=== PATIENT | female | born 1940 | race Caucasian/White ===

== ENCOUNTER 2017-03-03 18:25 | Emergency (ER) | payer MEDICARE, BC ==
[2017-03-03 18:36] VITALS: BP 132/55
--- NOTE | 2017-03-03 18:46 | EDM.PDOC ---
ED HPI GENERAL MEDICAL PROBLEM - General Chief Complaint: General Stated Complaint: FALL ON FACE Time Seen by Provider: 03/03/17 18:33 Source of Information: Reports: Patient History Limitations: Reports: No Limitations - History of Present Illness INITIAL COMMENTS - FREE TEXT/NARRATIVE: This patient is a 77 year old female that presents to the ER. Patient reports that she just got a new cat and tripped with the cat at home and fell and hit the nose and front head on the cement. Patent reports that she is on coumadin. She reports she came into the ER because she has a small cut on her nose and it would not stop bleeding. Patient reports she has frontal headache, nose pain, neck pain, lower back pain. Patient denies having loc, vision changes, n, v, cp , soa, abd pain, urinary/bowel incontinence. Patient ambulatory. Patient bleeding on nose is controlled. Patient is fully alert and oriented. She is conversing in full and complete sentences without difficulty. Stable. 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 Denies: Confusion, Chest Pain, Cough, cough w sputum, Diaphoresis, Fever/Chills, Loss of Appetite, Malaise, Nausea/ Vomiting, Rash, Seizure, Shortness of Breath, Syncope, Weakness Face Pain Score (Numeric/FACES): 4 - Related Data Allergies Allergy/AdvReac Type Severity Reaction Status Date / Time Sulfa (Sulfonamide Allergy Rash Verified 03/03/17 18:37 Antibiotics) Home Meds: Home Meds Allopurinol [Zyloprim] 100 mg PO DAILY 04/18/16 [History] Ferrous Sulfate 324 mg PO DAILY 04/18/16 [History] Insulin Glarg,Human.Rec.Analog [LantUS Solostar] 18 units SQ PCBREAKFAST [History] Insulin Glarg,Human.Rec.Analog [Lantus Solostar] 14 units SQ BEDTIME 04/18/16 [ History] Levothyroxine Sodium [Levoxyl] 125 mcg PO DAILY 04/18/16 [History] Simvastatin [Zocor] 20 mg PO DAILY 04/18/16 [History] Amiodarone [Cordarone] 200 mg PO DAILY 09/02/16 [History] Aspirin [Halfprin] 81 mg PO DAILY 09/02/16 [History] Furosemide [Lasix] 40 mg PO BID 10/30/16 [History] Potassium Chloride [Klor-Con M20] 10 meq PO DAILY 10/30/16 [History] Cyclobenzaprine HCl 5 mg PO BID PRN 11/14/16 [History] Docusate Sodium [Colace] 100 mg PO BID PRN 11/14/16 [History] Ergocalciferol (Vitamin D2) [Vitamin D2] 4,000 unit PO DAILY 11/14/16 [History] Magnesium 500 mg PO DAILY 11/14/16 [History] Nitroglycerin [Nitrostat] 0.4 mg SL Q5M PRN 11/14/16 [History] Apixaban [Eliquis] 5 mg PO BID #60 tablet 11/19/16 [Rx] Past Medical History Cardiovascular History: Reports: Afib, Bypass, Heart Failure, High Cholesterol, Hypertension, Stents Other Cardiovascular History: previous PTCA stent in 2010. Had attempt to place a cardiac stent in July, unable to do so; Has a history of Afib, as well as postop now; pleual effusion on 08-28-16, stayed overnight; Since CAGP---dizzy, fatgue and weakness, appetite improving some, somewhat SOB, lost a few pounds after surgery Gastrointestinal History: Reports: GERD Other Gastrointestinal History: reflux per history; choleylithasis Endocrine/Metabolic History: Reports: Diabetes, Type II, Hypothyroidism Other Endocrine/Metabolic History: says her blood sugars are OK right now Oncologic (Cancer) History: Reports: Other (See Below) Other Oncologic History: skin ca on nose - Past Surgical History Cardiovascular Surgical History: Reports: Coronary Artery Stent Social & Family History - Family History Family Medical History: Noncontributory - Tobacco Use Smoking Status *Q: Never Smoker Second Hand Smoke Exposure: No - Caffeine Use Caffeine Use: Reports: Coffee - Recreational Drug Use Recreational Drug Use: No ED ROS GENERAL - Review of Systems Review Of Systems: See Below Constitutional: Reports: No Symptoms HEENT: Reports: No Symptoms Respiratory: Reports: No Symptoms Cardiovascular: Reports: No Symptoms Endocrine: Reports: No Symptoms GI/Abdominal: Reports: No Symptoms : Reports: No Symptoms Musculoskeletal: Reports: Neck Pain, Back Pain (lower, right more than left. ) Skin: Reports: No Symptoms Neurological: Reports: Headache Psychiatric: Reports: No Symptoms Hematologic/Lymphatic: Reports: No Symptoms Immunologic: Reports: No Symptoms ED EXAM, GENERAL - Physical Exam Exam: See Below Exam Limited By: No Limitations General Appearance: Alert, WD/WN, No Apparent Distress Eye Exam: Bilateral Eye: EOMI, Normal Inspection, PERRL Ears: Normal External Exam, Normal Canal, Hearing Grossly Normal, Normal TMs Ear Exam: Bilateral Ear: Auricle Normal, Canal Normal, TM normal Nose: Nasal Tenderness, Nasal Swelling, Other (superficial laceration center of nose with abrasion. bleeding controlled. ) Throat/Mouth: Normal Inspection, Normal Lips, Normal Teeth, Normal Gums, Normal Oropharynx, Normal Voice, No Airway Compromise Head: Normocephalic, Facial Swelling (nasal), Facial Tenderness (nasal) Neck: Normal Inspection, Supple, Non-Tender, Full Range of Motion Respiratory/Chest: No Respiratory Distress, Lungs Clear, Normal Breath Sounds, No Accessory Muscle Use, Chest Non-Tender Cardiovascular: Normal Peripheral Pulses, Regular Rate, Rhythm, No Edema, No Gallop, No JVD, No Murmur, No Rub Peripheral Pulses: 2+: Radial (L), Radial (R), Posterior Tibial (L), Posterior Tibial (R) GI/Abdominal: Normal Bowel Sounds, Soft, Non-Tender, No Organomegaly, No Distention, No Abnormal Bruit, No Mass, Pelvis Stable Back Exam: Normal Inspection, Full Range of Motion, Paraspinal Tenderness (right ). No: CVA Tenderness (L), CVA Tenderness (R), Decreased Range of Motion, Muscle Spasm, Vertebral Tenderness Extremities: Normal Inspection, Normal Range of Motion, Non-Tender, No Pedal Edema, Normal Capillary Refill Neurological: Alert, Oriented, CN II-XII Intact, Normal Cognition, Normal Gait, No Motor/Sensory Deficits Psychiatric: Normal Affect, Normal Mood Skin Exam: Warm, Dry, Normal Color, No Rash, Wound/Incision (abrasion nose, small laceration 0.25cm. ) ED GENERAL MEDICAL PROCEDURES - Laceration/Wound Repair Upper Nose Lac/wound length in cm: 0.5 Appearance: superficial Distal NVT: neuro & vascular intact, no tendon injury Skin prep: chlorhexidine (hibiciens) Exploration/Debridement/Repair: wound explored, in a bloodless field, explored to base, no foreign material found Closed with: dermabond Course - Vital Signs Last Recorded V/S: Last Vital Signs Temp 97.7 F 03/03/17 18:29 Pulse 60 03/03/17 18:29 Resp 16 03/03/17 18:29 BP 132/55 L 03/03/17 18:29 Pulse Ox 96 03/03/17 18:29 - Orders/Labs/Meds Orders: Active Orders 24 hr Category Date Time Status Cervical Spine wo Cont [CT] Stat Exams 03/03/17 18:40 Taken Head wo Cont [CT] Stat Exams 03/03/17 18:33 Taken Lumbar Spine 2 or 3V [CR] Stat Exams 03/03/17 18:33 Taken Max Facial Sinus wo Cont [CT] Stat Exams 03/03/17 18:33 Taken INR,PT,PROTHROMBIN TIME [COAG] Stat Lab 03/03/17 18:36 Ordered - Radiology Interpretation Free Text/Narrative:: CT head: discussed with radiologist: No acute findings. Cervical: NO acute findings. Facial: nasal fx nondisplaced. CT Results Date: 03/03/17 CT Results Time: 19:57 Departure - Departure Time of Disposition: 19:58 Disposition: Home, Self-Care 01 Condition: good Clinical Impression: Abrasion Laceration of nose Qualifiers: Encounter type: initial encounter Qualified Code(s): S01.21XA - Laceration without foreign body of nose, initial encounter Head injury Qualifiers: Encounter type: initial encounter Qualified Code(s): S09.90XA - Unspecified injury of head, initial encounter Lumbar strain Qualifiers: Encounter type: initial encounter Qualified Code(s): S39.012A - Strain of muscle, fascia and tendon of lower back, initial encounter Nasal bone fracture Qualifiers: Encounter type: initial encounter Fracture type: closed Qualified Code(s): S02.2XXA - Fracture of nasal bones, initial encounter for closed fracture - Discharge Information Instructions: Tissue Adhesive Wound Care, Nasal Fracture, Lumbosacral Strain Forms: ED Department Discharge Additional Instructions: Followup with your primary care provider Return to the ER for worsening of condition or any emergent concerns If bleeding occurs apply constant pressure to the area Do not get glue wet for 24 hours Ice to painful areas - My Orders Last 24 Hours: My Active Orders 03/03/17 18:33 Head wo Cont [CT] Stat Lumbar Spine 2 or 3V [CR] Stat Max Facial Sinus wo Cont [CT] Stat 03/03/17 18:36 INR,PT,PROTHROMBIN TIME [COAG] Stat 03/03/17 18:40 Cervical Spine wo Cont [CT] Stat - Assessment/Plan Last 24 Hours: My Active Orders 03/03/17 18:33 Head wo Cont [CT] Stat Lumbar Spine 2 or 3V [CR] Stat Max Facial Sinus wo Cont [CT] Stat 03/03/17 18:36 INR,PT,PROTHROMBIN TIME [COAG] Stat 03/03/17 18:40 Cervical Spine wo Cont [CT] Stat Plan: PLEASE USE RN NOTE FOR PFSH.
== END 2017-03-03 20:20 | disposition home or self-care (01) ==
LOC: CC.ED 18:25
DX: S01.21XA Laceration without foreign body of nose, initial encounter (principal); R51 Headache; M54.5 Low back pain; M54.2 Cervicalgia; E11.9 Type 2 diabetes mellitus without complications; I48.91 Unspecified atrial fibrillation; E78.00 Pure hypercholesterolemia, unspecified; E03.9 Hypothyroidism, unspecified; K21.9 Gastro-esophageal reflux disease without esophagitis; Z79.01 Long term (current) use of anticoagulants; Z79.899 Other long term (current) drug therapy; Z98.61 Coronary angioplasty status; W18.31XA Fall on same level due to stepping on an object, initial encounter
CPT/HCPCS: 70450; 70486; 72100; 72125; 99283; 99284

== ENCOUNTER 2021-06-08 16:33 | Inpatient (IN) | payer MEDICARE, BC ==
--- NOTE | 2021-06-08 17:41 | EDM.PDOC ---
ED HPI GENERAL MEDICAL PROBLEM - General Chief Complaint: General Stated Complaint: SUGAR LEVEL IS HIGH & NOT READING Time Seen by Provider: 06/08/21 17:00 Source of Information: Reports: Patient, Family History Limitations: Reports: No Limitations - History of Present Illness INITIAL COMMENTS - FREE TEXT/NARRATIVE: Rajwinder is an 81 year old female who presents to ER with complaints of high blood sugars and weakness. STates had a physical done [address] Morris and had 4 steroid injections in to her neck and shoulders due to arthritic pain. Since that time, blood sugars have been very high. Reading out on her monitor at high which for her, states over 600. Had actually steroid shots in February as well in her hips and her A1C was 6.1 prior to that but now has been battling off and on weakness and high blood sugars since that time. More concerned today as even higher than before. Her A1C was 9.1 at her physical so he increased her Lantus by a total of 8 units. Has been taking the higher dose of Lantus but sugars still running high. Contacted his office earlier today and was told to take 8 units of Novolog and to call back to their office. Blood sugar was still over 500 and they suggested she be admitted to the hospital to get control of this and patient chose to come to [place] as "Dr. Morris wouldn't be in [place] all weekend any way". Also reports that she was increased on her Lasix to 80 mg in the am, 40 mg in the Pm. Relates that is down 20# since he increased this dose. Does feel more weak. No chest pain. Does feel short of breath at times. Mild nausea today but with little oral intake today. No vomiting. No diarrhea or constipation. No sinus congestion, sore throat or fever. No urinary symptoms. Onset: Gradual Duration: Week(s): Location: Reports: Generalized Associated Symptoms: Reports: Loss of Appetite, Malaise, Nausea/Vomiting, Weakness. Denies: Confusion, Chest Pain, Fever/Chills, Shortness of Breath - Related Data Allergies Allergy/AdvReac Type Severity Reaction Status Date / Time Sulfa (Sulfonamide Allergy Rash Verified 06/08/21 16:46 Antibiotics) Home Meds: Home Meds Simvastatin [Zocor] 20 mg PO DAILY 04/18/16 [History] Aspirin [Halfprin] 81 mg PO DAILY 09/02/16 [History] Furosemide [Lasix] 40 mg PO DAILY 10/30/16 [History] Potassium Chloride [Klor-Con M20] 10 meq PO DAILY 10/30/16 [History] Magnesium 500 mg PO DAILY 11/14/16 [History] Nitroglycerin [Nitrostat] 0.4 mg SL Q5M PRN 11/14/16 [History] Apixaban [Eliquis] 5 mg PO BID #60 tablet 11/19/16 [Rx] Acetaminophen 1,000 mg PO Q4H PRN 08/29/20 [History] Biotin 5 mg PO DAILY 08/29/20 [History] Ezetimibe 10 mg PO DAILY 08/29/20 [History] Folic Acid 0.4 mg PO DAILY 08/29/20 [History] Insulin Detemir [Levemir Flextouch] 20 units INJECT BID 08/29/20 [History] Isosorbide Mononitrate [Imdur] 60 mg PO DAILY 08/29/20 [History] Ketorolac [Acular 0.5% Ophth Soln] 1 drop EYERT ASDIRECTED 08/29/20 [History] Levothyroxine [Synthroid] 100 mcg PO DAILY 08/29/20 [History] Melatonin 3 mg PO DAILY 08/29/20 [History] Metoprolol Succinate 12.5 mg PO DAILY 08/29/20 [History] Prednisolone Acetate/Pf [Prednisolone Acet 1% Eye Drop] 1 drop EYERT ASDIRECTED 08/29/20 [History] Triamcinolone Acetonide 1 squirt TOP ASDIRECTED 08/29/20 [History] Vitamin D3/Folic Acid [Dermacinrx Folixapure Tablet] 1 tab PO DAILY 08/29/20 [History] Amoxicillin 500 mg PO TID 08/30/20 [History] Melatonin 10 mg PO DAILY 08/30/20 [History] Ofloxacin [Ocuflox 0.3% Ophth Soln] 1 drop EYERT QID 08/30/20 [History] Ubidecarenone [Coq-10] 100 mg PO DAILY 08/30/20 [History] allopurinoL [Zyloprim] 100 mg PO DAILY 08/30/20 [History] Past Medical History HEENT History: Reports: Cataract, Impaired Vision Cardiovascular History: Reports: Afib, Bypass, Heart Failure, High Cholesterol, Hypertension, Stents Other Cardiovascular History: previous PTCA stent in 2010. 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: Musculoskeletal History: Reports: Arthritis, Back Pain, Chronic, Gout Neurological History: Reports: None Psychiatric History: Reports: Depression Endocrine/Metabolic History: Reports: Diabetes, Type II, Hypothyroidism Other Endocrine/Metabolic History: says her blood sugars are OK right now Hematologic History: Reports: None Immunologic History: Reports: None Oncologic (Cancer) History: Reports: Other (See Below) Other Oncologic History: skin ca on nose Dermatologic History: Reports: None - Infectious Disease History Infectious Disease History: Reports: Chicken Pox, Measles, Mumps - Past Surgical History HEENT Surgical History: Reports: Cataract Surgery, Naso-Sinus Surgery Cardiovascular Surgical History: Reports: Coronary Artery Stent Respiratory Surgical History: Reports: Thoracentesis GI Surgical History: Reports: Cholecystectomy, Colonoscopy, EGD Female Surgical History: Reports: Breast Reduction, Hysterectomy Endocrine Surgical History: Reports: None Neurological Surgical History: Reports: C-Spine Other Neurological Surgeries/Procedures: 4 back surg and 1 neck surg Musculoskeletal Surgical History: Reports: Shoulder Surgery Oncologic Surgical History: Reports: Biopsy of Breast Social & Family History - Family History Family Medical History: No Pertinent Family History - Tobacco Use Tobacco Use Status *Q: Never Tobacco User Second Hand Smoke Exposure: No - Caffeine Use Caffeine Use: Reports: None Caffeine Use Comment: occasional - Recreational Drug Use Recreational Drug Use: No ED ROS GENERAL - Review of Systems Review Of Systems: See Below Constitutional: Reports: Weakness, Fatigue, Decreased Appetite. Denies: Fever, Chills, Malaise HEENT: Reports: Rhinitis. Denies: Ear Pain, Sinus Problem, Throat Pain, Vertigo Respiratory: Reports: Shortness of Breath. Denies: Cough Cardiovascular: Reports: Edema. Denies: Chest Pain, Lightheadedness Endocrine: Reports: Fatigue GI/Abdominal: Reports: Nausea. Denies: Abdominal Pain, Black Stool, Bloody Stool, Constipation, Diarrhea, Vomiting : Reports: No Symptoms Musculoskeletal: Reports: Joint Pain Skin: Reports: Bruising Neurological: Reports: Weakness. Denies: Confusion, Dizziness Psychiatric: Reports: No Symptoms ED EXAM, GENERAL - Physical Exam Exam: See Below Exam Limited By: No Limitations General Appearance: Alert, WD/WN, No Apparent Distress Ears: Normal External Exam, Normal TMs Nose: Normal Inspection, Normal Mucosa, No Blood Throat/Mouth: Normal Inspection, Normal Oropharynx Head: Normocephalic Neck: Normal Inspection, Supple, Non-Tender Respiratory/Chest: No Respiratory Distress, Lungs Clear, Normal Breath Sounds Cardiovascular: Irregularly Irregular GI/Abdominal: Normal Bowel Sounds, Soft, Non-Tender Extremities: Pedal Edema (1-2+) Neurological: Alert, Oriented Course - Vital Signs Last Recorded V/S: Last Vital Signs Temp 97.8 F 06/08/21 16:33 Pulse 85 06/08/21 16:33 Resp 16 06/08/21 16:33 BP 155/88 H 06/08/21 16:33 Pulse Ox 98 06/08/21 16:33 - Orders/Labs/Meds Orders: Active Orders 24 hr Category Date Time Status LACTIC ACID [CHEM] Stat Lab 06/08/21 17:00 Received Labs: Laboratory Tests 06/08/21 06/08/21 06/08/21 Range/Units 16:40 17:00 17:00 WBC 20.5 H* (4.0-11.0) 10^3/uL RBC 5.82 H (4.00-5.50) x10^6/uL Hgb 17.9 H (12.0-16.0) g/dL Hct 50.8 H (37.0-47.0) % MCV 87.3 (83.0-97.0) fL MCH 30.8 (27.0-32.0) pg MCHC 35.2 (32.0-36.0) g/dL RDW Coeff of [place] 13.4 (11.0-15.0) % Plt Count 211 (150-400) 10^3/uL Immature Gran % (Auto) 0.4 (0.0-4.9) % Neut % (Auto) 82.6 H (41-71) % Lymph % (Auto) 10.3 L (24-44) % [place] % (Auto) 6.6 (0-10) % Eos % (Auto) 0.1 (0-6) % Baso % (Auto) 0.0 (0-1) % Neut # (Auto) 16.87 H (1.80-8.00) x10^3/uL Lymph # (Auto) 2.10 (0.60-5.00) 10^3/uL [place] # (Auto) 1.36 (0.00-1.50) 10^3/uL Eos # (Auto) 0.03 (0.00-1.50) 10^3/uL Baso # (Auto) 0.01 (0.00-0.50) 10^3/uL Immature Gran # (Auto) 0.09 (0.00-0.49) 10^3/uL Sodium 127 L (136-145) mEq/L Potassium 5.0 (3.5-5.0) mEq/L Chloride 91 L (98-106) mEq/L Carbon Dioxide 26 (21-32) mmol/L BUN 111 H* D (7-18) mg/dL Creatinine 2.3 H D (0.6-1.0) mg/dL Est Cr Clr Drug Dosing 18.26 mL/min Estimated GFR (MDRD) 20 L (>=60) mL/min Glucose 511 H* D (75-99) mg/dL POC Glucose 537 H* (75-105) mg/dL Calcium 9.6 (8.4-10.1) mg/dL Total Bilirubin 1.7 H (0.0-1.0) mg/dL AST 73 H (15-37) U/L ALT 209 H (12-78) U/L Alkaline Phosphatase 174 H (46-116) U/L C-Reactive Protein (0.2-0.8) mg/dL Total Protein 8.1 (6.4-8.2) g/dL Albumin 4.0 (3.4-5.0) g/dL Urine Color (YELLOW) Urine Appearance (CLEAR) Urine pH (4.5-8.0) Ur Specific [place] (1.003-1.020) Urine Protein (NEGATIVE) mg/dL Urine Glucose (UA) (NEGATIVE) mg/dL Urine Ketones (NEGATIVE) mg/dL Urine Occult Blood (NEGATIVE) Urine Nitrite (NEGATIVE) Urine Bilirubin (NEGATIVE) Urine Urobilinogen (0.2-1.0) EU/dL Ur Leukocyte Esterase (NEGATIVE) 06/08/21 06/08/21 Range/Units 17:00 17:04 WBC (4.0-11.0) 10^3/uL RBC (4.00-5.50) x10^6/uL Hgb (12.0-16.0) g/dL Hct (37.0-47.0) % MCV (83.0-97.0) fL MCH (27.0-32.0) pg MCHC (32.0-36.0) g/dL RDW Coeff of Licha (11.0-15.0) % Plt Count (150-400) 10^3/uL Immature Gran % (Auto) (0.0-4.9) % Neut % (Auto) (41-71) % Lymph % (Auto) (24-44) % [place] % (Auto) (0-10) % Eos % (Auto) (0-6) % Baso % (Auto) (0-1) % Neut # (Auto) (1.80-8.00) x10^3/uL Lymph # (Auto) (0.60-5.00) 10^3/uL [place] # (Auto) (0.00-1.50) 10^3/uL Eos # (Auto) (0.00-1.50) 10^3/uL Baso # (Auto) (0.00-0.50) 10^3/uL Immature Gran # (Auto) (0.00-0.49) 10^3/uL Sodium (136-145) mEq/L Potassium (3.5-5.0) mEq/L Chloride (98-106) mEq/L Carbon Dioxide (21-32) mmol/L BUN (7-18) mg/dL Creatinine (0.6-1.0) mg/dL Est Cr Clr Drug Dosing mL/min Estimated GFR (MDRD) (>=60) mL/min Glucose (75-99) mg/dL POC Glucose (75-105) mg/dL Calcium (8.4-10.1) mg/dL Total Bilirubin (0.0-1.0) mg/dL AST (15-37) U/L ALT (12-78) U/L Alkaline Phosphatase (46-116) U/L C-Reactive Protein < 0.2 L (0.2-0.8) mg/dL Total Protein (6.4-8.2) g/dL Albumin (3.4-5.0) g/dL Urine Color Light yellow (YELLOW) Urine Appearance Clear (CLEAR) Urine pH 6.5 (4.5-8.0) Ur Specific [place] 1.015 (1.003-1.020) Urine Protein Negative (NEGATIVE) mg/dL Urine Glucose (UA) 500 H (NEGATIVE) mg/dL Urine Ketones Negative (NEGATIVE) mg/dL Urine Occult Blood Negative (NEGATIVE) Urine Nitrite Negative (NEGATIVE) Urine Bilirubin Negative (NEGATIVE) Urine Urobilinogen 0.2 (0.2-1.0) EU/dL Ur Leukocyte Esterase Negative (NEGATIVE) - Re-Assessments/Exams Free Text/Narrative Re-Assessment/Exam: 06/08/21 17:46 Blood sugar remains over 500. Creatinine is 2.3 with BUN of 111, which are much higher than when labs checked one month ago for cardiology. Sodium is down now to 127. Likely changes since increasing Lasix. Advised patient of observation admission, would require sliding scale insulin and may need this once returns home until levels off after the steroid injections. Will need to elevate legs and start Merlene hose and watch fluid intake closely due to decreasing Lasix dose. Patient is agreeable to plan. Departure - Departure Time of Disposition: 17:49 Disposition: Refer to Observation Clinical Impression: Hyperglycemia, Hyponatremia, Renal failure (ARF), acute on chronic - Discharge Information *PRESCRIPTION DRUG MONITORING PROGRAM REVIEWED*: No Sepsis Event Note (ED) - Evaluation Sepsis Screening Result: No Definite Risk - Focused Exam Vital Signs: Vital Signs Temp Pulse Resp BP Pulse Ox 06/08/21 16:33 97.8 F 85 16 155/88 H 98 - Problem List & Annotations (1) Hyperglycemia SNOMED Code(s): 20473360 Code(s): R73.9 - HYPERGLYCEMIA, UNSPECIFIED Status: Acute (2) Renal failure (ARF), acute on chronic SNOMED Code(s): 688845089 Code(s): N17.9 - ACUTE KIDNEY FAILURE, UNSPECIFIED; N18.9 - CHRONIC KIDNEY DISEASE, UNSPECIFIED Status: Chronic Priority: High Qualifiers: Chronic kidney disease stage: stage 4 (severe) (3) A-fib SNOMED Code(s): 46908502 Code(s): I48.91 - UNSPECIFIED ATRIAL FIBRILLATION Status: Chronic Priority: High (4) Hyponatremia SNOMED Code(s): 19927275 Code(s): E87.1 - HYPO-OSMOLALITY AND HYPONATREMIA Status: Acute Priority: High - Problem List Review Problem List Initiated/Reviewed/Updated: Yes - Assessment/Plan Admission H&P: Please use this note as an admission H&P Assessment:: Hyperglycemia Hyponatremia Acute on chronic renal failure Plan: Admit observation. Start IV Normal Saline. Reduce Lasix. Elevate legs, MERLENE hose. Sliding scale insulin. Repeat labs in am.
[2021-06-08] MEDS ORDERED: Insulin Lispro 100 Units/ML 3 ML Vial SUBCUT STA (17:57)
[2021-06-08] MEDS ORDERED: Acetaminophen 325 MG Tab PO PRN (17:57)
[2021-06-08] MEDS ORDERED: 50% Dextrose in Water 50 ML Syringe IVPUSH PRN (17:57)
[2021-06-08] MEDS ORDERED: Glucagon,Human Recombinant 1 MG Vial IM PRN (17:57)
[2021-06-08] MEDS ORDERED: Sodium Chloride 0.9% 10 ML Syringe FLUSH PRN (17:57)
[2021-06-08] MEDS ORDERED: Ondansetron 4 MG Tab.DIS PO PRN (17:57)
[2021-06-08] MEDS ORDERED: Acetaminophen 500 MG Tab PO PRN (18:14)
[2021-06-08] MEDS ORDERED: Nitroglycerin 0.4 MG Tab.SL **OWN MED SL PRN (18:14)
[2021-06-08] MEDS ORDERED: Ketorolac 0.5% Ophth Soln 3 ML Bottle EYERT SCH (18:15)
[2021-06-08] MEDS ORDERED: Non-Formulary Medication 1 Each (Prednisolone Acetate/Pf [Prednisolone Acet 1% Eye Drop] 5 EYERT SCH (18:15)
[2021-06-08] MEDS: Sodium Chloride 0.9% 1,000 ML IV SCH (18:44)
[2021-06-08] MEDS ORDERED: Melatonin 3 MG Tab PO SCH (20:00)
[2021-06-08] MEDS ORDERED: Non-Formulary Medication 1 Each (Ofloxacin [Ocuflox 0.3% Ophth Soln] 5 ML Bottle) EYERT SCH (20:00)
[2021-06-08] MEDS ORDERED: Non-Formulary Medication 1 Each (Melatonin [Melatonin] 10 MG Tablet) PO SCH (20:00)
[2021-06-08] MEDS: Aspirin 81 MG Tab.EC PO SCH (21:17)
[2021-06-08] MEDS: Apixaban 5 MG Tab **OWN MED PO SCH (21:17)
[2021-06-08] MEDS: Insulin Lispro 100 Units/ML 3 ML Vial SUBCUT SCH (21:18)
[2021-06-08] MEDS: Insulin Glarg,Human.Rec.Analog 100 Unit/ML SUBCUT SCH (21:20)
[2021-06-09] MEDS: Sodium Chloride 0.9% 1,000 ML IV SCH (04:56)
[2021-06-09] MEDS ORDERED: Simvastatin 20 MG Tab PO SCH (08:00)
[2021-06-09] MEDS ORDERED: Aspirin 81 MG Tab.EC PO SCH (08:00)
[2021-06-09] MEDS ORDERED: FOLIC ACID PO SCH (08:00)
[2021-06-09] MEDS ORDERED: [UNRECOGNIZED DRUG - OTHER] PO SCH (08:00)
[2021-06-09] MEDS ORDERED: VITAMIN D3 PO SCH (08:00)
[2021-06-09] MEDS: Insulin Lispro 100 Units/ML 3 ML Vial SUBCUT SCH ×4 (08:06→20:57)
[2021-06-09] MEDS: Apixaban 5 MG Tab **OWN MED PO SCH ×2 (08:07→19:38)
[2021-06-09] MEDS: EZETIMIBE 10 MG PO SCH (08:07)
[2021-06-09] MEDS: FOLIC ACID 0.4 MG PO SCH (08:08)
[2021-06-09] MEDS: Potassium Chloride 10 MEQ Tab.ER PO SCH (08:08)
[2021-06-09] MEDS: ISOSORBIDE MONONITRATE 60 MG PO SCH (08:08)
[2021-06-09] MEDS: Metoprolol Succinate 25 MG Tab.ER **OWN MED PO SCH (08:11)
[2021-06-09] MEDS: Levothyroxine 100 MCG Tab **OWN MED PO SCH (08:11)
[2021-06-09] MEDS: Insulin Glarg,Human.Rec.Analog 100 Unit/ML SUBCUT SCH ×2 (08:12→20:54)
[2021-06-09] MEDS: Furosemide 40 MG Tab *PT OWN MED PO SCH ×2 (11:03→17:03)
--- NOTE | 2021-06-09 13:00 | PCM.PN ---
- General Info Date of Service: 06/09/21 Admission Dx/Problem (Free Text): Rajwinder is resting comfortably, up in chair today. Admits did not sleep all that well, has been sleeping in a recliner since february when she fell. Does have chronic back pain since that time. Has remained afebrile. Not toxic appearing. Blood sugars had improved overnight. Denies chest pain, shortness of breath or nausea. Discussed change of medications with her and what was held last night due to low sodium, elevated BUN/creatinine, elevated liver enzymes. Is worried about holding her gout meds as she "doesn't want a flare up of that". Informed creatinine is improved and since on low dose of Allopurinol, we can resume that. Lasix was reduced and Spironolactone has been held due to kidney issues. Zocor held due to elevated liver enzymes. Appetite has been good. Ambulates well to bathroom. Functional Status: Reports: Pain Controlled, Tolerating Diet, Ambulating, Urinating - Review of Systems General: Reports: Weakness, Fatigue, Malaise HEENT: Denies: Ear Pain, Headaches, Sinus Congestion, Sore Throat Pulmonary: Denies: Shortness of Breath, Cough Cardiovascular: Reports: Edema. Denies: Chest Pain, Lightheadedness Gastrointestinal: Denies: Abdominal Pain, Decreased Appetite, Nausea, Vomiting Genitourinary: Reports: No Symptoms Musculoskeletal: Reports: Back Pain Skin: Reports: No Symptoms Neurological: Reports: Weakness - Patient Data Vitals - Most Recent: Last Vital Signs Temp 97.5 F 06/09/21 12:00 Pulse 69 06/09/21 12:00 Resp 16 06/09/21 12:00 BP 139/87 06/09/21 12:00 Pulse Ox 98 06/09/21 12:00 Weight - Most Recent: 196 lb I&O - Last 24 Hours: Intake & Output 06/08/21 06/09/21 06/09/21 22:59 06:59 14:59 Intake Total 1000 Balance 1000 Lab Results Last 24 Hours: Laboratory Results - last 24 hr 06/08/21 06/08/21 06/08/21 Range/Units 16:40 17:00 17:00 WBC 20.5 H* (4.0-11.0) 10^3/uL RBC 5.82 H (4.00-5.50) x10^6/uL Hgb 17.9 H (12.0-16.0) g/dL Hct 50.8 H (37.0-47.0) % MCV 87.3 (83.0-97.0) fL MCH 30.8 (27.0-32.0) pg MCHC 35.2 (32.0-36.0) g/dL RDW Coeff of Licha 13.4 (11.0-15.0) % Plt Count 211 (150-400) 10^3/uL Immature Gran % (Auto) 0.4 (0.0-4.9) % Neut % (Auto) 82.6 H (41-71) % Lymph % (Auto) 10.3 L (24-44) % White % (Auto) 6.6 (0-10) % Eos % (Auto) 0.1 (0-6) % Baso % (Auto) 0.0 (0-1) % Neut # (Auto) 16.87 H (1.80-8.00) x10^3/uL Lymph # (Auto) 2.10 (0.60-5.00) 10^3/uL White # (Auto) 1.36 (0.00-1.50) 10^3/uL Eos # (Auto) 0.03 (0.00-1.50) 10^3/uL Baso # (Auto) 0.01 (0.00-0.50) 10^3/uL Immature Gran # (Auto) 0.09 (0.00-0.49) 10^3/uL Add Manual Diff Neutrophils % (Manual) (35-85) % Lymphocytes % (Manual) (21-55) % Monocytes % (Manual) (2-12) % Sodium 127 L (136-145) mEq/L Potassium 5.0 (3.5-5.0) mEq/L Chloride 91 L (98-106) mEq/L Carbon Dioxide 26 (21-32) mmol/L BUN 111 H* D (7-18) mg/dL Creatinine 2.3 H D (0.6-1.0) mg/dL Est Cr Clr Drug Dosing 18.26 mL/min Estimated GFR (MDRD) 20 L (>=60) mL/min Glucose 511 H* D (75-99) mg/dL POC Glucose 537 H* (75-105) mg/dL Lactic Acid (0.4-2.0) mmol/L Calcium 9.6 (8.4-10.1) mg/dL Total Bilirubin 1.7 H (0.0-1.0) mg/dL AST 73 H (15-37) U/L ALT 209 H (12-78) U/L Alkaline Phosphatase 174 H (46-116) U/L C-Reactive Protein (0.2-0.8) mg/dL Total Protein 8.1 (6.4-8.2) g/dL Albumin 4.0 (3.4-5.0) g/dL Urine Color (YELLOW) Urine Appearance (CLEAR) Urine pH (4.5-8.0) Ur Specific [place] (1.003-1.020) Urine Protein (NEGATIVE) mg/dL Urine Glucose (UA) (NEGATIVE) mg/dL Urine Ketones (NEGATIVE) mg/dL Urine Occult Blood (NEGATIVE) Urine Nitrite (NEGATIVE) Urine Bilirubin (NEGATIVE) Urine Urobilinogen (0.2-1.0) EU/dL Ur Leukocyte Esterase (NEGATIVE) 06/08/21 06/08/21 06/08/21 Range/Units 17:00 17:00 17:04 WBC (4.0-11.0) 10^3/uL RBC (4.00-5.50) x10^6/uL Hgb (12.0-16.0) g/dL Hct (37.0-47.0) % MCV (83.0-97.0) fL MCH (27.0-32.0) pg MCHC (32.0-36.0) g/dL RDW Coeff of Licha (11.0-15.0) % Plt Count (150-400) 10^3/uL Immature Gran % (Auto) (0.0-4.9) % Neut % (Auto) (41-71) % Lymph % (Auto) (24-44) % White % (Auto) (0-10) % Eos % (Auto) (0-6) % Baso % (Auto) (0-1) % Neut # (Auto) (1.80-8.00) x10^3/uL Lymph # (Auto) (0.60-5.00) 10^3/uL White # (Auto) (0.00-1.50) 10^3/uL Eos # (Auto) (0.00-1.50) 10^3/uL Baso # (Auto) (0.00-0.50) 10^3/uL Immature Gran # (Auto) (0.00-0.49) 10^3/uL Add Manual Diff Neutrophils % (Manual) (35-85) % Lymphocytes % (Manual) (21-55) % Monocytes % (Manual) (2-12) % Sodium (136-145) mEq/L Potassium (3.5-5.0) mEq/L Chloride (98-106) mEq/L Carbon Dioxide (21-32) mmol/L BUN (7-18) mg/dL Creatinine (0.6-1.0) mg/dL Est Cr Clr Drug Dosing mL/min Estimated GFR (MDRD) (>=60) mL/min Glucose (75-99) mg/dL POC Glucose (75-105) mg/dL Lactic Acid 1.7 (0.4-2.0) mmol/L Calcium (8.4-10.1) mg/dL Total Bilirubin (0.0-1.0) mg/dL AST (15-37) U/L ALT (12-78) U/L Alkaline Phosphatase (46-116) U/L C-Reactive Protein < 0.2 L (0.2-0.8) mg/dL Total Protein (6.4-8.2) g/dL Albumin (3.4-5.0) g/dL Urine Color Light yellow (YELLOW) Urine Appearance Clear (CLEAR) Urine pH 6.5 (4.5-8.0) Ur Specific [place] 1.015 (1.003-1.020) Urine Protein Negative (NEGATIVE) mg/dL Urine Glucose (UA) 500 H (NEGATIVE) mg/dL Urine Ketones Negative (NEGATIVE) mg/dL Urine Occult Blood Negative (NEGATIVE) Urine Nitrite Negative (NEGATIVE) Urine Bilirubin Negative (NEGATIVE) Urine Urobilinogen 0.2 (0.2-1.0) EU/dL Ur Leukocyte Esterase Negative (NEGATIVE) 06/08/21 06/08/21 06/09/21 Range/Units 19:40 20:59 00:13 WBC (4.0-11.0) 10^3/uL RBC (4.00-5.50) x10^6/uL Hgb (12.0-16.0) g/dL Hct (37.0-47.0) % MCV (83.0-97.0) fL MCH (27.0-32.0) pg MCHC (32.0-36.0) g/dL RDW Coeff of Licha (11.0-15.0) % Plt Count (150-400) 10^3/uL Immature Gran % (Auto) (0.0-4.9) % Neut % (Auto) (41-71) % Lymph % (Auto) (24-44) % White % (Auto) (0-10) % Eos % (Auto) (0-6) % Baso % (Auto) (0-1) % Neut # (Auto) (1.80-8.00) x10^3/uL Lymph # (Auto) (0.60-5.00) 10^3/uL White # (Auto) (0.00-1.50) 10^3/uL Eos # (Auto) (0.00-1.50) 10^3/uL Baso # (Auto) (0.00-0.50) 10^3/uL Immature Gran # (Auto) (0.00-0.49) 10^3/uL Add Manual Diff Neutrophils % (Manual) (35-85) % Lymphocytes % (Manual) (21-55) % Monocytes % (Manual) (2-12) % Sodium (136-145) mEq/L Potassium (3.5-5.0) mEq/L Chloride (98-106) mEq/L Carbon Dioxide (21-32) mmol/L BUN (7-18) mg/dL Creatinine (0.6-1.0) mg/dL Est Cr Clr Drug Dosing mL/min Estimated GFR (MDRD) (>=60) mL/min Glucose (75-99) mg/dL POC Glucose > 600 H* 472 H* 184 H (75-105) mg/dL Lactic Acid (0.4-2.0) mmol/L Calcium (8.4-10.1) mg/dL Total Bilirubin (0.0-1.0) mg/dL AST (15-37) U/L ALT (12-78) U/L Alkaline Phosphatase (46-116) U/L C-Reactive Protein (0.2-0.8) mg/dL Total Protein (6.4-8.2) g/dL Albumin (3.4-5.0) g/dL Urine Color (YELLOW) Urine Appearance (CLEAR) Urine pH (4.5-8.0) Ur Specific [place] (1.003-1.020) Urine Protein (NEGATIVE) mg/dL Urine Glucose (UA) (NEGATIVE) mg/dL Urine Ketones (NEGATIVE) mg/dL Urine Occult Blood (NEGATIVE) Urine Nitrite (NEGATIVE) Urine Bilirubin (NEGATIVE) Urine Urobilinogen (0.2-1.0) EU/dL Ur Leukocyte Esterase (NEGATIVE) 06/09/21 06/09/21 06/09/21 Range/Units 07:15 07:15 09:17 WBC 21.8 H* (4.0-11.0) 10^3/uL RBC 5.86 H (4.00-5.50) x10^6/uL Hgb 18.1 H* (12.0-16.0) g/dL Hct 51.8 H (37.0-47.0) % MCV 88.4 (83.0-97.0) fL MCH 30.9 (27.0-32.0) pg MCHC 34.9 (32.0-36.0) g/dL RDW Coeff of Licha 13.6 (11.0-15.0) % Plt Count 196 (150-400) 10^3/uL Immature Gran % (Auto) (0.0-4.9) % Neut % (Auto) (41-71) % Lymph % (Auto) (24-44) % White % (Auto) (0-10) % Eos % (Auto) (0-6) % Baso % (Auto) (0-1) % Neut # (Auto) (1.80-8.00) x10^3/uL Lymph # (Auto) (0.60-5.00) 10^3/uL White # (Auto) (0.00-1.50) 10^3/uL Eos # (Auto) (0.00-1.50) 10^3/uL Baso # (Auto) (0.00-0.50) 10^3/uL Immature Gran # (Auto) (0.00-0.49) 10^3/uL Add Manual Diff Yes Neutrophils % (Manual) 83 (35-85) % Lymphocytes % (Manual) 12 L (21-55) % Monocytes % (Manual) 5 (2-12) % Sodium 134 L (136-145) mEq/L Potassium 4.6 (3.5-5.0) mEq/L Chloride 98 (98-106) mEq/L Carbon Dioxide 30 (21-32) mmol/L BUN 95 H* (7-18) mg/dL Creatinine 1.8 H (0.6-1.0) mg/dL Est Cr Clr Drug Dosing 23.34 mL/min Estimated GFR (MDRD) 27 L (>=60) mL/min Glucose 203 H D (75-99) mg/dL POC Glucose (75-105) mg/dL Lactic Acid (0.4-2.0) mmol/L Calcium 9.3 (8.4-10.1) mg/dL Total Bilirubin (0.0-1.0) mg/dL AST (15-37) U/L ALT (12-78) U/L Alkaline Phosphatase (46-116) U/L C-Reactive Protein < 0.2 L (0.2-0.8) mg/dL Total Protein (6.4-8.2) g/dL Albumin (3.4-5.0) g/dL Urine Color (YELLOW) Urine Appearance (CLEAR) Urine pH (4.5-8.0) Ur Specific [place] (1.003-1.020) Urine Protein (NEGATIVE) mg/dL Urine Glucose (UA) (NEGATIVE) mg/dL Urine Ketones (NEGATIVE) mg/dL Urine Occult Blood (NEGATIVE) Urine Nitrite (NEGATIVE) Urine Bilirubin (NEGATIVE) Urine Urobilinogen (0.2-1.0) EU/dL Ur Leukocyte Esterase (NEGATIVE) 06/09/21 Range/Units 12:02 WBC (4.0-11.0) 10^3/uL RBC (4.00-5.50) x10^6/uL Hgb (12.0-16.0) g/dL Hct (37.0-47.0) % MCV (83.0-97.0) fL MCH (27.0-32.0) pg MCHC (32.0-36.0) g/dL RDW Coeff of Licha (11.0-15.0) % Plt Count (150-400) 10^3/uL Immature Gran % (Auto) (0.0-4.9) % Neut % (Auto) (41-71) % Lymph % (Auto) (24-44) % White % (Auto) (0-10) % Eos % (Auto) (0-6) % Baso % (Auto) (0-1) % Neut # (Auto) (1.80-8.00) x10^3/uL Lymph # (Auto) (0.60-5.00) 10^3/uL White # (Auto) (0.00-1.50) 10^3/uL Eos # (Auto) (0.00-1.50) 10^3/uL Baso # (Auto) (0.00-0.50) 10^3/uL Immature Gran # (Auto) (0.00-0.49) 10^3/uL Add Manual Diff Neutrophils % (Manual) (35-85) % Lymphocytes % (Manual) (21-55) % Monocytes % (Manual) (2-12) % Sodium (136-145) mEq/L Potassium (3.5-5.0) mEq/L Chloride (98-106) mEq/L Carbon Dioxide (21-32) mmol/L BUN (7-18) mg/dL Creatinine (0.6-1.0) mg/dL Est Cr Clr Drug Dosing mL/min Estimated GFR (MDRD) (>=60) mL/min Glucose (75-99) mg/dL POC Glucose 519 H* (75-105) mg/dL Lactic Acid (0.4-2.0) mmol/L Calcium (8.4-10.1) mg/dL Total Bilirubin (0.0-1.0) mg/dL AST (15-37) U/L ALT (12-78) U/L Alkaline Phosphatase (46-116) U/L C-Reactive Protein (0.2-0.8) mg/dL Total Protein (6.4-8.2) g/dL Albumin (3.4-5.0) g/dL Urine Color (YELLOW) Urine Appearance (CLEAR) Urine pH (4.5-8.0) Ur Specific [place] (1.003-1.020) Urine Protein (NEGATIVE) mg/dL Urine Glucose (UA) (NEGATIVE) mg/dL Urine Ketones (NEGATIVE) mg/dL Urine Occult Blood (NEGATIVE) Urine Nitrite (NEGATIVE) Urine Bilirubin (NEGATIVE) Urine Urobilinogen (0.2-1.0) EU/dL Ur Leukocyte Esterase (NEGATIVE) Med Orders - Current: Current Medications Acetaminophen (Acetaminophen 500 Mg Tab) 1,000 mg PO Q4H PRN PRN Reason: Pain Allopurinol (Allopurinol 100 Mg Tab) 100 mg PO DAILY [facility] Apixaban (Apixaban 5 Mg Tab Own Med) 5 mg PO BID [facility] Last Admin: 06/09/21 08:07 Dose: 5 mg Documented by: Aspirin (Aspirin 81 Mg Tab.Ec) 81 mg PO BEDTIME [facility] Last Admin: 06/08/21 21:17 Dose: 81 mg Documented by: Dextrose/Water (50% Dextrose In Water 50 Ml Syringe) 50 ml IVPUSH ASDIRECTED PRN PRN Reason: Hypoglycemia Furosemide (Furosemide 40 Mg Tab *Pt Own Med*) 40 mg PO BIDDIURETIC [facility] Last Admin: 06/09/21 11:03 Dose: 40 mg Documented by: Glucagon (Glucagon,Human Recombinant 1 Mg Vial) 1 mg IM ASDIRECTED PRN PRN Reason: Hypoglycemia Insulin Glargine (Insulin Glarg,Human.Rec.Analog 100 Unit/Ml) 24 unit SUBCUT BID [facility] Last Admin: 06/09/21 08:12 Dose: 24 units Documented by: Insulin Human Lispro (Insulin Lispro 100 Units/Ml 3 Ml Vial) 0 unit SUBCUT WITHMEALSANDBED [facility]; Protocol Last Admin: 06/09/21 12:10 Dose: 15 units Documented by: Isosorbide Mononitrate (Isosorbide Mononitrate 60 Mg Tab.Er Own Med) 60 mg PO DAILY [facility] Last Admin: 06/09/21 08:08 Dose: 60 mg Documented by: Levothyroxine Sodium (Levothyroxine 100 Mcg Tab Own Med) 100 mcg PO DAILY [facility] Last Admin: 06/09/21 08:11 Dose: 100 mcg Documented by: Magnesium Oxide (Magnesium Oxide 250 Mg Tab) 500 mg PO BEDTIME [facility] Last Admin: 06/08/21 21:18 Dose: 500 mg Documented by: Metoprolol Succinate (Metoprolol Succinate 25 Mg Tab.Er Own Med) 12.5 mg PO DAILY [facility] Last Admin: 06/09/21 08:11 Dose: 12.5 mg Documented by: Nitroglycerin (Nitroglycerin 0.4 Mg Tab.Sl Own Med) 0.4 mg SL Q5M PRN PRN Reason: Chest Pain Ezetimibe 10 Mg (Tablet Own Med) 0 mg PO DAILY [facility] Last Admin: 06/09/21 08:07 Dose: 10 mg Documented by: Folic Acid 0.4 Mg (Tablet Own Med) 0 mg PO DAILY [facility] Last Admin: 06/09/21 08:08 Dose: 0.4 mg Documented by: Ondansetron HCl (Ondansetron 4 Mg Tab.Dis) 4 mg PO Q4H PRN PRN Reason: nausea, able to take PO Potassium Chloride (Potassium Chloride 10 Meq Tab.Er) 10 meq PO DAILY [facility] Last Admin: 06/09/21 08:08 Dose: 10 meq Documented by: Simvastatin (Simvastatin 20 Mg Tab) 20 mg PO BEDTIME [facility] Sodium Chloride (Sodium Chloride 0.9% 10 Ml Syringe) 10 ml FLUSH ASDIRECTED PRN PRN Reason: Keep Vein Open Discontinued Medications Acetaminophen (Acetaminophen 325 Mg Tab) 650 mg PO Q4H PRN PRN Reason: Pain (Mild 1-3)/fever Aspirin (Aspirin 81 Mg Tab.Ec) 81 mg PO DAILY [facility] Sodium Chloride (Normal Saline) 1,000 mls @ 100 mls/hr IV ASDIRECTED [facility] Last Admin: 06/09/21 04:56 Dose: 100 mls/hr Documented by: Insulin Human Lispro (Insulin Lispro 100 Units/Ml 3 Ml Vial) 15 unit SUBCUT NOW STA Stop: 06/08/21 17:58 Last Admin: 06/08/21 18:22 Dose: 15 units Documented by: Ketorolac Tromethamine (Ketorolac 0.5% Ophth Soln 3 Ml Bottle) ml EYERT ASDIRECTED [facility] Magnesium Oxide (Magnesium Oxide 250 Mg Tab) 500 mg PO DAILY [facility] Melatonin (Melatonin 3 Mg Tab) 3 mg PO BEDTIME [facility] Last Admin: 06/08/21 21:24 Dose: Not Given Documented by: Non-Formulary Medication (Melatonin [Melatonin]) 10 mg PO BEDTIME [facility] Non-Formulary Medication (Ofloxacin [Ocuflox 0.3% Ophth Soln]) 1 drop EYERT QID GUSTAV[facility] Non-Formulary Medication (Prednisolone Acetate/Pf [Prednisolone Acet 1% Eye Drop]) 1 drop EYERT ASDIRECTED [facility] Non-Formulary Medication (Ubidecarenone [Coq-10]) 100 mg PO DAILY [facility] Non-Formulary Medication (Vitamin D3/Folic Acid [Dermacinrx Folixapure Tablet]) 1 tab PO DAILY [facility] Simvastatin (Simvastatin 20 Mg Tab) 20 mg PO DAILY [facility] - Exam General: Alert, Oriented, Cooperative HEENT: Mucous Membr. Moist/[place] Neck: Supple Lungs: Clear to Auscultation, Normal Respiratory Effort Cardiovascular: Irregular Rhythm GI/Abdominal Exam: Normal Bowel Sounds, Soft, Non-Tender Extremities: Pedal Edema (2+ pitting edema) Skin: Warm, Dry Neurological: No New Focal Deficit - Patient Data Lab Results Last 24 hrs: Laboratory Results - last 24 hr 06/08/21 06/08/21 06/08/21 Range/Units 16:40 17:00 17:00 WBC 20.5 H* (4.0-11.0) 10^3/uL RBC 5.82 H (4.00-5.50) x10^6/uL Hgb 17.9 H (12.0-16.0) g/dL Hct 50.8 H (37.0-47.0) % MCV 87.3 (83.0-97.0) fL MCH 30.8 (27.0-32.0) pg MCHC 35.2 (32.0-36.0) g/dL RDW Coeff of Licha 13.4 (11.0-15.0) % Plt Count 211 (150-400) 10^3/uL Immature Gran % (Auto) 0.4 (0.0-4.9) % Neut % (Auto) 82.6 H (41-71) % Lymph % (Auto) 10.3 L (24-44) % White % (Auto) 6.6 (0-10) % Eos % (Auto) 0.1 (0-6) % Baso % (Auto) 0.0 (0-1) % Neut # (Auto) 16.87 H (1.80-8.00) x10^3/uL Lymph # (Auto) 2.10 (0.60-5.00) 10^3/uL White # (Auto) 1.36 (0.00-1.50) 10^3/uL Eos # (Auto) 0.03 (0.00-1.50) 10^3/uL Baso # (Auto) 0.01 (0.00-0.50) 10^3/uL Immature Gran # (Auto) 0.09 (0.00-0.49) 10^3/uL Add Manual Diff Neutrophils % (Manual) (35-85) % Lymphocytes % (Manual) (21-55) % Monocytes % (Manual) (2-12) % Sodium 127 L (136-145) mEq/L Potassium 5.0 (3.5-5.0) mEq/L Chloride 91 L (98-106) mEq/L Carbon Dioxide 26 (21-32) mmol/L BUN 111 H* D (7-18) mg/dL Creatinine 2.3 H D (0.6-1.0) mg/dL Est Cr Clr Drug Dosing 18.26 mL/min Estimated GFR (MDRD) 20 L (>=60) mL/min Glucose 511 H* D (75-99) mg/dL POC Glucose 537 H* (75-105) mg/dL Lactic Acid (0.4-2.0) mmol/L Calcium 9.6 (8.4-10.1) mg/dL Total Bilirubin 1.7 H (0.0-1.0) mg/dL AST 73 H (15-37) U/L ALT 209 H (12-78) U/L Alkaline Phosphatase 174 H (46-116) U/L C-Reactive Protein (0.2-0.8) mg/dL Total Protein 8.1 (6.4-8.2) g/dL Albumin 4.0 (3.4-5.0) g/dL Urine Color (YELLOW) Urine Appearance (CLEAR) Urine pH (4.5-8.0) Ur Specific [place] (1.003-1.020) Urine Protein (NEGATIVE) mg/dL Urine Glucose (UA) (NEGATIVE) mg/dL Urine Ketones (NEGATIVE) mg/dL Urine Occult Blood (NEGATIVE) Urine Nitrite (NEGATIVE) Urine Bilirubin (NEGATIVE) Urine Urobilinogen (0.2-1.0) EU/dL Ur Leukocyte Esterase (NEGATIVE) 06/08/21 06/08/21 06/08/21 Range/Units 17:00 17:00 17:04 WBC (4.0-11.0) 10^3/uL RBC (4.00-5.50) x10^6/uL Hgb (12.0-16.0) g/dL Hct (37.0-47.0) % MCV (83.0-97.0) fL MCH (27.0-32.0) pg MCHC (32.0-36.0) g/dL RDW Coeff of Licha (11.0-15.0) % Plt Count (150-400) 10^3/uL Immature Gran % (Auto) (0.0-4.9) % Neut % (Auto) (41-71) % Lymph % (Auto) (24-44) % White % (Auto) (0-10) % Eos % (Auto) (0-6) % Baso % (Auto) (0-1) % Neut # (Auto) (1.80-8.00) x10^3/uL Lymph # (Auto) (0.60-5.00) 10^3/uL White # (Auto) (0.00-1.50) 10^3/uL Eos # (Auto) (0.00-1.50) 10^3/uL Baso # (Auto) (0.00-0.50) 10^3/uL Immature Gran # (Auto) (0.00-0.49) 10^3/uL Add Manual Diff Neutrophils % (Manual) (35-85) % Lymphocytes % (Manual) (21-55) % Monocytes % (Manual) (2-12) % Sodium (136-145) mEq/L Potassium (3.5-5.0) mEq/L Chloride (98-106) mEq/L Carbon Dioxide (21-32) mmol/L BUN (7-18) mg/dL Creatinine (0.6-1.0) mg/dL Est Cr Clr Drug Dosing mL/min Estimated GFR (MDRD) (>=60) mL/min Glucose (75-99) mg/dL POC Glucose (75-105) mg/dL Lactic Acid 1.7 (0.4-2.0) mmol/L Calcium (8.4-10.1) mg/dL Total Bilirubin (0.0-1.0) mg/dL AST (15-37) U/L ALT (12-78) U/L Alkaline Phosphatase (46-116) U/L C-Reactive Protein < 0.2 L (0.2-0.8) mg/dL Total Protein (6.4-8.2) g/dL Albumin (3.4-5.0) g/dL Urine Color Light yellow (YELLOW) Urine Appearance Clear (CLEAR) Urine pH 6.5 (4.5-8.0) Ur Specific [place] 1.015 (1.003-1.020) Urine Protein Negative (NEGATIVE) mg/dL Urine Glucose (UA) 500 H (NEGATIVE) mg/dL Urine Ketones Negative (NEGATIVE) mg/dL Urine Occult Blood Negative (NEGATIVE) Urine Nitrite Negative (NEGATIVE) Urine Bilirubin Negative (NEGATIVE) Urine Urobilinogen 0.2 (0.2-1.0) EU/dL Ur Leukocyte Esterase Negative (NEGATIVE) 06/08/21 06/08/21 06/09/21 Range/Units 19:40 20:59 00:13 WBC (4.0-11.0) 10^3/uL RBC (4.00-5.50) x10^6/uL Hgb (12.0-16.0) g/dL Hct (37.0-47.0) % MCV (83.0-97.0) fL MCH (27.0-32.0) pg MCHC (32.0-36.0) g/dL RDW Coeff of Licha (11.0-15.0) % Plt Count (150-400) 10^3/uL Immature Gran % (Auto) (0.0-4.9) % Neut % (Auto) (41-71) % Lymph % (Auto) (24-44) % White % (Auto) (0-10) % Eos % (Auto) (0-6) % Baso % (Auto) (0-1) % Neut # (Auto) (1.80-8.00) x10^3/uL Lymph # (Auto) (0.60-5.00) 10^3/uL White # (Auto) (0.00-1.50) 10^3/uL Eos # (Auto) (0.00-1.50) 10^3/uL Baso # (Auto) (0.00-0.50) 10^3/uL Immature Gran # (Auto) (0.00-0.49) 10^3/uL Add Manual Diff Neutrophils % (Manual) (35-85) % Lymphocytes % (Manual) (21-55) % Monocytes % (Manual) (2-12) % Sodium (136-145) mEq/L Potassium (3.5-5.0) mEq/L Chloride (98-106) mEq/L Carbon Dioxide (21-32) mmol/L BUN (7-18) mg/dL Creatinine (0.6-1.0) mg/dL Est Cr Clr Drug Dosing mL/min Estimated GFR (MDRD) (>=60) mL/min Glucose (75-99) mg/dL POC Glucose > 600 H* 472 H* 184 H (75-105) mg/dL Lactic Acid (0.4-2.0) mmol/L Calcium (8.4-10.1) mg/dL Total Bilirubin (0.0-1.0) mg/dL AST (15-37) U/L ALT (12-78) U/L Alkaline Phosphatase (46-116) U/L C-Reactive Protein (0.2-0.8) mg/dL Total Protein (6.4-8.2) g/dL Albumin (3.4-5.0) g/dL Urine Color (YELLOW) Urine Appearance (CLEAR) Urine pH (4.5-8.0) Ur Specific [place] (1.003-1.020) Urine Protein (NEGATIVE) mg/dL Urine Glucose (UA) (NEGATIVE) mg/dL Urine Ketones (NEGATIVE) mg/dL Urine Occult Blood (NEGATIVE) Urine Nitrite (NEGATIVE) Urine Bilirubin (NEGATIVE) Urine Urobilinogen (0.2-1.0) EU/dL Ur Leukocyte Esterase (NEGATIVE) 06/09/21 06/09/21 06/09/21 Range/Units 07:15 07:15 09:17 WBC 21.8 H* (4.0-11.0) 10^3/uL RBC 5.86 H (4.00-5.50) x10^6/uL Hgb 18.1 H* (12.0-16.0) g/dL Hct 51.8 H (37.0-47.0) % MCV 88.4 (83.0-97.0) fL MCH 30.9 (27.0-32.0) pg MCHC 34.9 (32.0-36.0) g/dL RDW Coeff of [place]icha 13.6 (11.0-15.0) % Plt Count 196 (150-400) 10^3/uL Immature Gran % (Auto) (0.0-4.9) % Neut % (Auto) (41-71) % Lymph % (Auto) (24-44) % White % (Auto) (0-10) % Eos % (Auto) (0-6) % Baso % (Auto) (0-1) % Neut # (Auto) (1.80-8.00) x10^3/uL Lymph # (Auto) (0.60-5.00) 10^3/uL White # (Auto) (0.00-1.50) 10^3/uL Eos # (Auto) (0.00-1.50) 10^3/uL Baso # (Auto) (0.00-0.50) 10^3/uL Immature Gran # (Auto) (0.00-0.49) 10^3/uL Add Manual Diff Yes Neutrophils % (Manual) 83 (35-85) % Lymphocytes % (Manual) 12 L (21-55) % Monocytes % (Manual) 5 (2-12) % Sodium 134 L (136-145) mEq/L Potassium 4.6 (3.5-5.0) mEq/L Chloride 98 (98-106) mEq/L Carbon Dioxide 30 (21-32) mmol/L BUN 95 H* (7-18) mg/dL Creatinine 1.8 H (0.6-1.0) mg/dL Est Cr Clr Drug Dosing 23.34 mL/min Estimated GFR (MDRD) 27 L (>=60) mL/min Glucose 203 H D (75-99) mg/dL POC Glucose (75-105) mg/dL Lactic Acid (0.4-2.0) mmol/L Calcium 9.3 (8.4-10.1) mg/dL Total Bilirubin (0.0-1.0) mg/dL AST (15-37) U/L ALT (12-78) U/L Alkaline Phosphatase (46-116) U/L C-Reactive Protein < 0.2 L (0.2-0.8) mg/dL Total Protein (6.4-8.2) g/dL Albumin (3.4-5.0) g/dL Urine Color (YELLOW) Urine Appearance (CLEAR) Urine pH (4.5-8.0) Ur Specific [place] (1.003-1.020) Urine Protein (NEGATIVE) mg/dL Urine Glucose (UA) (NEGATIVE) mg/dL Urine Ketones (NEGATIVE) mg/dL Urine Occult Blood (NEGATIVE) Urine Nitrite (NEGATIVE) Urine Bilirubin (NEGATIVE) Urine Urobilinogen (0.2-1.0) EU/dL Ur Leukocyte Esterase (NEGATIVE) 06/09/21 Range/Units 12:02 WBC (4.0-11.0) 10^3/uL RBC (4.00-5.50) x10^6/uL Hgb (12.0-16.0) g/dL Hct (37.0-47.0) % MCV (83.0-97.0) fL MCH (27.0-32.0) pg MCHC (32.0-36.0) g/dL RDW Coeff of Licha (11.0-15.0) % Plt Count (150-400) 10^3/uL Immature Gran % (Auto) (0.0-4.9) % Neut % (Auto) (41-71) % Lymph % (Auto) (24-44) % White % (Auto) (0-10) % Eos % (Auto) (0-6) % Baso % (Auto) (0-1) % Neut # (Auto) (1.80-8.00) x10^3/uL Lymph # (Auto) (0.60-5.00) 10^3/uL White # (Auto) (0.00-1.50) 10^3/uL Eos # (Auto) (0.00-1.50) 10^3/uL Baso # (Auto) (0.00-0.50) 10^3/uL Immature Gran # (Auto) (0.00-0.49) 10^3/uL Add Manual Diff Neutrophils % (Manual) (35-85) % Lymphocytes % (Manual) (21-55) % Monocytes % (Manual) (2-12) % Sodium (136-145) mEq/L Potassium (3.5-5.0) mEq/L Chloride (98-106) mEq/L Carbon Dioxide (21-32) mmol/L BUN (7-18) mg/dL Creatinine (0.6-1.0) mg/dL Est Cr Clr Drug Dosing mL/min Estimated GFR (MDRD) (>=60) mL/min Glucose (75-99) mg/dL POC Glucose 519 H* (75-105) mg/dL Lactic Acid (0.4-2.0) mmol/L Calcium (8.4-10.1) mg/dL Total Bilirubin (0.0-1.0) mg/dL AST (15-37) U/L ALT (12-78) U/L Alkaline Phosphatase (46-116) U/L C-Reactive Protein (0.2-0.8) mg/dL Total Protein (6.4-8.2) g/dL Albumin (3.4-5.0) g/dL Urine Color (YELLOW) Urine Appearance (CLEAR) Urine pH (4.5-8.0) Ur Specific [place] (1.003-1.020) Urine Protein (NEGATIVE) mg/dL Urine Glucose (UA) (NEGATIVE) mg/dL Urine Ketones (NEGATIVE) mg/dL Urine Occult Blood (NEGATIVE) Urine Nitrite (NEGATIVE) Urine Bilirubin (NEGATIVE) Urine Urobilinogen (0.2-1.0) EU/dL Ur Leukocyte Esterase (NEGATIVE) Result Diagrams: 06/09/21 07:15 06/09/21 07:15 Sepsis Event Note - Evaluation Sepsis Screening Result: No Definite Risk - Focused Exam Vital Signs: Vital Signs Temp Pulse Pulse Resp BP BP Pulse Ox 06/09/21 12:00 97.5 F 69 16 139/87 98 06/09/21 08:11 75 157/64 H 06/09/21 08:00 96.3 F L 69 16 137/64 96 06/09/21 04:00 97.2 F 67 14 137/71 97 - Problem List & Annotations (1) Hyperglycemia SNOMED Code(s): 11863149 Code(s): R73.9 - HYPERGLYCEMIA, UNSPECIFIED Status: Acute Priority: High Current Visit: Yes (2) Renal failure (ARF), acute on chronic SNOMED Code(s): 526345807 Code(s): N17.9 - ACUTE KIDNEY FAILURE, UNSPECIFIED; N18.9 - CHRONIC KIDNEY DISEASE, UNSPECIFIED Status: Chronic Priority: High Current Visit: Yes Qualifiers: Chronic kidney disease stage: stage 4 (severe) (3) A-fib SNOMED Code(s): 83613704 Code(s): I48.91 - UNSPECIFIED ATRIAL FIBRILLATION Status: Chronic Priority: High Current Visit: Yes (4) Hyponatremia SNOMED Code(s): 87113250 Code(s): E87.1 - HYPO-OSMOLALITY AND HYPONATREMIA Status: Acute Priority: High Current Visit: Yes - Problem List Review Problem List Initiated/Reviewed/Updated: Yes - My Orders Last 24 Hours: My Active Orders 06/08/21 17:57 Blood Glucose Check, Bedside [RC] QIDACANDBED Up With Assistance [RC] .PRN Dextrose 50% in Water 50 ml IVPUSH ASDIRECTED PRN Glucagon,Human Recombinant [GlucaGen] 1 mg IM ASDIRECTED PRN Ondansetron [Zofran ODT] 4 mg PO Q4H PRN Sodium Chloride 0.9% [Saline Flush] 10 ml FLUSH ASDIRECTED PRN Peripheral IV Insertion Adult [OM.PC] Routine Resuscitation Status Routine 06/08/21 17:58 Patient Status [ADT] Routine Oxygen Therapy [RC] .PRN Vital Signs [RC] 0000,0400,0800,1200,1600,2000 06/08/21 18:00 Antiembolic Devices [RC] 1000,2200 Cardiac Monitoring [RC] 0800,2000 Consistent Carbohydrate Diet [DIET] Antiembolic Hose [OM.PC] Per Unit Routine 06/08/21 18:14 Acetaminophen [Tylenol Extra Strength] 1,000 mg PO Q4H PRN Nitroglycerin [Nitrostat] 0.4 mg SL Q5M PRN 06/08/21 20:00 Apixaban [Eliquis] 5 mg PO BID Insulin Glarg,Human.Rec.Analog [LantUS] 24 unit SUBCUT BID 06/08/21 20:15 Simvastatin [Zocor] 20 mg PO BEDTIME 06/08/21 20:30 Aspirin [Halfprin] 81 mg PO BEDTIME 06/08/21 20:45 Magnesium Oxide 500 mg PO BEDTIME 06/08/21 21:00 Insulin Lispro [HumaLOG] See Protocol SUBCUT WITHMEALSANDBED 06/09/21 08:00 Ezetimibe [Ezetimibe] 0 mg PO DAILY Folic Acid [Folic Acid] 0 mg PO DAILY Isosorbide Mononitrate [Imdur] 60 mg PO DAILY Levothyroxine [Synthroid] 100 mcg PO DAILY Metoprolol Succinate [Toprol XL] 12.5 mg PO DAILY Potassium Chloride [Klor-Con 10] 10 meq PO DAILY 06/09/21 10:00 Furosemide [Lasix] 40 mg PO BIDDIURETIC 06/09/21 10:45 allopurinoL [Zyloprim] 100 mg PO DAILY 06/10/21 05:11 C-REACTIVE PROTEIN [CHEM] AM CBC WITH AUTO DIFF [HEME] AM COMPREHENSIVE METABOLIC PN,CMP [CHEM] AM PRO B-TYPE NATRIUR PEPT,BNPPRO [CHEM] Routine - Assessment Assessment:: Hyperglycemia Hyponatremia Acute on Chronic renal failure Weakness - Plan Plan:: Patients labs repeated today. WBC increased marginally to 21.8, hemoglobin still high. BUN and creatinine have improved, creatinine now 1.8, BUN 95. CRP remains negative. Lactic acid was normal. Has been afebrile. Blood sugars were improved, up over 500 again at lunch time. Sodium has improved to 134. Due to polypharmacy and multiple lab abnormalities and concerns with WBC as unsure if just related to steroid injections, did contact hospitalist, Dr. Valerio. Recommended to stop the IV fluids as sodium is corrected and kidney function is improving to prevent further issues with heart failure. Keep diuretics at present dose, hold Spironolactone. Follow WBC and if not correcting, despite other normal results, may need to search for a source of infection, especially if develops any fevers. Continue with sliding scale of insulin. Repeat labs in am or sooner if becomes febrile. Did question possible CT scans if creatinine improves and WBC does not improve.
[2021-06-09] MEDS: Allopurinol 100 MG Tab **OWN MED PO SCH (19:28)
[2021-06-09] MEDS: Aspirin 81 MG Tab.EC PO SCH (19:41)
[2021-06-10 07:43] LABS: CHLORIDE,CL 100 mEq/L (98-106); SODIUM,NA 136 mEq/L (136-145)
[2021-06-10] MEDS: Furosemide 40 MG Tab *PT OWN MED PO SCH ×2 (08:06→17:07)
[2021-06-10] MEDS: Potassium Chloride 10 MEQ Tab.ER PO SCH (08:06)
[2021-06-10] MEDS: FOLIC ACID 0.4 MG PO SCH (08:07)
[2021-06-10] MEDS: EZETIMIBE 10 MG PO SCH (08:07)
[2021-06-10] MEDS: Levothyroxine 100 MCG Tab **OWN MED PO SCH (08:08)
[2021-06-10] MEDS: ISOSORBIDE MONONITRATE 60 MG PO SCH (08:08)
[2021-06-10] MEDS: Allopurinol 100 MG Tab **OWN MED PO SCH (08:08)
[2021-06-10] MEDS: Metoprolol Succinate 25 MG Tab.ER **OWN MED PO SCH (08:09)
[2021-06-10] MEDS: Insulin Lispro 100 Units/ML 3 ML Vial SUBCUT SCH ×4 (08:09→21:14)
[2021-06-10] MEDS: Apixaban 5 MG Tab **OWN MED PO SCH (08:09)
[2021-06-10] MEDS: Insulin Glarg,Human.Rec.Analog 100 Unit/ML SUBCUT SCH ×2 (08:10→21:13)
[2021-06-10] MEDS ORDERED: Glucagon,Human Recombinant 1 MG Vial IM PRN (10:27)
[2021-06-10] MEDS ORDERED: 50% Dextrose in Water 50 ML Syringe IVPUSH PRN (10:27)
[2021-06-10] MEDS ORDERED: Insulin Glarg,Human.Rec.Analog 100 Unit/ML SUBCUT ONE (10:28)
[2021-06-10] MEDS: Sodium Chloride 0.9% 1,000 ML IV SCH ×2 (10:47→23:50)
--- NOTE | 2021-06-10 11:42 | PCM.PN ---
- General Info Date of Service: 06/10/21 Admission Dx/Problem (Free Text): Rajwinder is resting comfortably, up in chair today. Admits did not sleep all that well, has been sleeping in a recliner since february when she fell. Does have chronic back pain since that time. Has remained afebrile. Not toxic appearing. Blood sugars had improved overnight. Denies chest pain, shortness of breath or nausea. Discussed change of medications with her and what was held last night due to low sodium, elevated BUN/creatinine, elevated liver enzymes. Is worried about holding her gout meds as she "doesn't want a flare up of that". Informed creatinine is improved and since on low dose of Allopurinol, we can resume that. Lasix was reduced and Spironolactone has been held due to kidney issues. Zocor held due to elevated liver enzymes. Appetite has been good. Ambulates well to bathroom. 06-10-2021 Patient continues to complain of feeling "drained and weak". Unable to lie in the bed due to difficulty with getting comfortable with her back pain. Eating well. Blood sugars continue to remain high during the day, improved by am. Has required high doses of Humalog during the day at mealtimes with blood sugars being over 400. Has remained afebrile, not toxic appearing. No new changes reported by patient in regards to chest pain, shortness of breath, nausea or burning with urination. Functional Status: Reports: Pain Controlled, Tolerating Diet, Ambulating, Urinating - Review of Systems General: Reports: Weakness, Fatigue, Malaise. Denies: Fever HEENT: Denies: Eye Pain, Headaches, Sinus Congestion, Visual Changes Pulmonary: Reports: Shortness of Breath. Denies: Cough Cardiovascular: Reports: Edema. Denies: Chest Pain, Lightheadedness Gastrointestinal: Denies: Abdominal Pain, Nausea, Vomiting Genitourinary: Reports: Urgency Musculoskeletal: Reports: Back Pain Skin: Reports: No Symptoms Neurological: Reports: Weakness - Patient Data Vitals - Most Recent: Last Vital Signs Temp 96.7 F L 06/10/21 08:00 Pulse 71 06/10/21 08:09 Resp 16 06/10/21 08:00 BP 157/86 H 06/10/21 08:09 Pulse Ox 95 06/10/21 08:00 Weight - Most Recent: 196 lb Lab Results Last 24 Hours: Laboratory Results - last 24 hr 06/09/21 06/09/21 06/09/21 Range/Units 12:02 17:14 20:54 WBC (4.0-11.0) 10^3/uL RBC (4.00-5.50) x10^6/uL Hgb (12.0-16.0) g/dL Hct (37.0-47.0) % MCV (83.0-97.0) fL MCH (27.0-32.0) pg MCHC (32.0-36.0) g/dL RDW Coeff of Licha (11.0-15.0) % Plt Count (150-400) 10^3/uL Immature Gran % (Auto) (0.0-4.9) % Neut % (Auto) (41-71) % Lymph % (Auto) (24-44) % Harmon % (Auto) (0-10) % Eos % (Auto) (0-6) % Baso % (Auto) (0-1) % Neut # (Auto) (1.80-8.00) x10^3/uL Lymph # (Auto) (0.60-5.00) 10^3/uL Harmon # (Auto) (0.00-1.50) 10^3/uL Eos # (Auto) (0.00-1.50) 10^3/uL Baso # (Auto) (0.00-0.50) 10^3/uL Immature Gran # (Auto) (0.00-0.49) 10^3/uL Sodium (136-145) mEq/L Potassium (3.5-5.0) mEq/L Chloride (98-106) mEq/L Carbon Dioxide (21-32) mmol/L BUN (7-18) mg/dL Creatinine (0.6-1.0) mg/dL Est Cr Clr Drug Dosing mL/min Estimated GFR (MDRD) (>=60) mL/min Glucose (75-99) mg/dL POC Glucose 519 H* 469 H* 397 H (75-105) mg/dL Calcium (8.4-10.1) mg/dL Total Bilirubin (0.0-1.0) mg/dL AST (15-37) U/L ALT (12-78) U/L Alkaline Phosphatase (46-116) U/L C-Reactive Protein (0.2-0.8) mg/dL NT-Pro-B Natriuret Pep (0-1000) pg/mL Total Protein (6.4-8.2) g/dL Albumin (3.4-5.0) g/dL 06/10/21 06/10/21 06/10/21 Range/Units 07:10 07:10 07:59 WBC 19.7 H (4.0-11.0) 10^3/uL RBC 5.62 H (4.00-5.50) x10^6/uL Hgb 17.3 H (12.0-16.0) g/dL Hct 50.2 H (37.0-47.0) % MCV 89.3 (83.0-97.0) fL MCH 30.8 (27.0-32.0) pg MCHC 34.5 (32.0-36.0) g/dL RDW Coeff of Licha 13.9 (11.0-15.0) % Plt Count 179 (150-400) 10^3/uL Immature Gran % (Auto) 0.6 (0.0-4.9) % Neut % (Auto) 80.1 H (41-71) % Lymph % (Auto) 12.8 L (24-44) % Harmon % (Auto) 6.0 (0-10) % Eos % (Auto) 0.4 (0-6) % Baso % (Auto) 0.1 (0-1) % Neut # (Auto) 15.79 H (1.80-8.00) x10^3/uL Lymph # (Auto) 2.51 (0.60-5.00) 10^3/uL Harmon # (Auto) 1.18 (0.00-1.50) 10^3/uL Eos # (Auto) 0.08 (0.00-1.50) 10^3/uL Baso # (Auto) 0.01 (0.00-0.50) 10^3/uL Immature Gran # (Auto) 0.11 (0.00-0.49) 10^3/uL Sodium 136 (136-145) mEq/L Potassium 4.3 (3.5-5.0) mEq/L Chloride 100 (98-106) mEq/L Carbon Dioxide 32 (21-32) mmol/L BUN 86 H* (7-18) mg/dL Creatinine 1.9 H (0.6-1.0) mg/dL Est Cr Clr Drug Dosing 22.11 mL/min Estimated GFR (MDRD) 25 L (>=60) mL/min Glucose 176 H (75-99) mg/dL POC Glucose 177 H (75-105) mg/dL Calcium 8.9 (8.4-10.1) mg/dL Total Bilirubin 1.4 H (0.0-1.0) mg/dL AST 78 H (15-37) U/L ALT 176 H (12-78) U/L Alkaline Phosphatase 128 H (46-116) U/L C-Reactive Protein < 0.2 L (0.2-0.8) mg/dL NT-Pro-B Natriuret Pep 488 (0-1000) pg/mL Total Protein 7.1 (6.4-8.2) g/dL Albumin 3.5 (3.4-5.0) g/dL Med Orders - Current: Current Medications Acetaminophen (Acetaminophen 500 Mg Tab) 1,000 mg PO Q4H PRN PRN Reason: Pain Allopurinol (Allopurinol 100 Mg Tab Own Med) 100 mg PO DAILY [facility] Last Admin: 06/10/21 08:08 Dose: 100 mg Documented by: Apixaban (Apixaban 5 Mg Tab Own Med) 5 mg PO BID [facility] Last Admin: 06/10/21 08:09 Dose: 5 mg Documented by: Aspirin (Aspirin 81 Mg Tab.Ec) 81 mg PO BEDTIME [facility] Last Admin: 06/09/21 19:41 Dose: 81 mg Documented by: Dextrose/Water (50% Dextrose In Water 50 Ml Syringe) 50 ml IVPUSH ASDIRECTED PRN PRN Reason: Hypoglycemia Furosemide (Furosemide 40 Mg Tab *Pt Own Med*) 40 mg PO BIDDIURETIC [facility] Last Admin: 06/10/21 08:06 Dose: 40 mg Documented by: Glucagon (Glucagon,Human Recombinant 1 Mg Vial) 1 mg IM ASDIRECTED PRN PRN Reason: Hypoglycemia Sodium Chloride (Normal Saline) 1,000 mls @ 75 mls/hr IV ASDIRECTED [facility] Last Admin: 06/10/21 10:47 Dose: 75 mls/hr Documented by: Insulin Glargine (Insulin Glarg,Human.Rec.Analog 100 Unit/Ml) 30 unit SUBCUT DAILY [facility] Insulin Glargine (Insulin Glarg,Human.Rec.Analog 100 Unit/Ml) 26 unit SUBCUT BEDTIME [facility] Insulin Human Lispro (Insulin Lispro 100 Units/Ml 3 Ml Vial) 0 unit SUBCUT WITHMEALSANDBED [facility]; Protocol Last Admin: 06/10/21 08:09 Dose: 3 units Documented by: Isosorbide Mononitrate (Isosorbide Mononitrate 60 Mg Tab.Er Own Med) 60 mg PO DAILY [facility] Last Admin: 06/10/21 08:08 Dose: 60 mg Documented by: Levothyroxine Sodium (Levothyroxine 100 Mcg Tab Own Med) 100 mcg PO DAILY [facility] Last Admin: 06/10/21 08:08 Dose: 100 mcg Documented by: Magnesium Oxide (Magnesium Oxide 250 Mg Tab) 500 mg PO BEDTIME [facility] Last Admin: 06/09/21 19:41 Dose: 500 mg Documented by: Metoprolol Succinate (Metoprolol Succinate 25 Mg Tab.Er Own Med) 12.5 mg PO DAILY [facility] Last Admin: 06/10/21 08:09 Dose: 12.5 mg Documented by: Nitroglycerin (Nitroglycerin 0.4 Mg Tab.Sl Own Med) 0.4 mg SL Q5M PRN PRN Reason: Chest Pain Ezetimibe 10 Mg (Tablet Own Med) 0 mg PO DAILY [facility] Last Admin: 06/10/21 08:07 Dose: 10 mg Documented by: Folic Acid 0.4 Mg (Tablet Own Med) 0 mg PO DAILY [facility] Last Admin: 06/10/21 08:07 Dose: 0.4 mg Documented by: Ondansetron HCl (Ondansetron 4 Mg Tab.Dis) 4 mg PO Q4H PRN PRN Reason: nausea, able to take PO Potassium Chloride (Potassium Chloride 10 Meq Tab.Er) 10 meq PO DAILY [facility] Last Admin: 06/10/21 08:06 Dose: 10 meq Documented by: Simvastatin (Simvastatin 20 Mg Tab) 20 mg PO BEDTIME [facility] Sodium Chloride (Sodium Chloride 0.9% 10 Ml Syringe) 10 ml FLUSH ASDIRECTED PRN PRN Reason: Keep Vein Open Discontinued Medications Acetaminophen (Acetaminophen 325 Mg Tab) 650 mg PO Q4H PRN PRN Reason: Pain (Mild 1-3)/fever Aspirin (Aspirin 81 Mg Tab.Ec) 81 mg PO DAILY [facility] Dextrose/Water (50% Dextrose In Water 50 Ml Syringe) 50 ml IVPUSH ASDIRECTED PRN PRN Reason: Hypoglycemia Glucagon (Glucagon,Human Recombinant 1 Mg Vial) 1 mg IM ASDIRECTED PRN PRN Reason: Hypoglycemia Sodium Chloride (Normal Saline) 1,000 mls @ 100 mls/hr IV ASDIRECTED [facility] Last Admin: 06/09/21 04:56 Dose: 100 mls/hr Documented by: Insulin Glargine (Insulin Glarg,Human.Rec.Analog 100 Unit/Ml) 24 unit SUBCUT BID [facility] Last Admin: 06/09/21 08:12 Dose: 24 units Documented by: Insulin Glargine (Insulin Glarg,Human.Rec.Analog 100 Unit/Ml) 26 unit SUBCUT BID [facility] Last Admin: 06/10/21 08:10 Dose: 26 unit Documented by: Insulin Glargine (Insulin Glarg,Human.Rec.Analog 100 Unit/Ml) 4 unit SUBCUT NOW ONE Stop: 06/10/21 10:29 Last Admin: 06/10/21 10:46 Dose: 4 unit Documented by: Insulin Human Lispro (Insulin Lispro 100 Units/Ml 3 Ml Vial) 15 unit SUBCUT NOW STA Stop: 06/08/21 17:58 Last Admin: 06/08/21 18:22 Dose: 15 units Documented by: Ketorolac Tromethamine (Ketorolac 0.5% Ophth Soln 3 Ml Bottle) ml EYERT A SDIRECTED [facility] Magnesium Oxide (Magnesium Oxide 250 Mg Tab) 500 mg PO DAILY [facility] Melatonin (Melatonin 3 Mg Tab) 3 mg PO BEDTIME [facility] Last Admin: 06/08/21 21:24 Dose: Not Given Documented by: Non-Formulary Medication (Melatonin [Melatonin]) 10 mg PO BEDTIME [facility] Non-Formulary Medication (Ofloxacin [Ocuflox 0.3% Ophth Soln]) 1 drop EYERT QID [facility] Non-Formulary Medication (Prednisolone Acetate/Pf [Prednisolone Acet 1% Eye Drop]) 1 drop EYERT ASDIRECTED [facility] Non-Formulary Medication (Ubidecarenone [Coq-10]) 100 mg PO DAILY [facility] Non-Formulary Medication (Vitamin D3/Folic Acid [Dermacinrx Folixapure Tablet]) 1 tab PO DAILY [facility] Simvastatin (Simvastatin 20 Mg Tab) 20 mg PO DAILY [facility] - Exam General: Alert, Oriented HEENT: Mucous Membr. Moist/[place] Neck: Supple Lungs: Clear to Auscultation, Normal Respiratory Effort Cardiovascular: Regular Rate, Regular Rhythm GI/Abdominal Exam: Normal Bowel Sounds, Soft, Non-Tender Extremities: Normal Inspection, Pedal Edema (1-2+) Skin: Warm, Dry Neurological: No New Focal Deficit - Patient Data Lab Results Last 24 hrs: Laboratory Results - last 24 hr 06/09/21 06/09/21 06/09/21 Range/Units 12:02 17:14 20:54 WBC (4.0-11.0) 10^3/uL RBC (4.00-5.50) x10^6/uL Hgb (12.0-16.0) g/dL Hct (37.0-47.0) % MCV (83.0-97.0) fL MCH (27.0-32.0) pg MCHC (32.0-36.0) g/dL RDW Coeff of Licha (11.0-15.0) % Plt Count (150-400) 10^3/uL Immature Gran % (Auto) (0.0-4.9) % Neut % (Auto) (41-71) % Lymph % (Auto) (24-44) % Harmon % (Auto) (0-10) % Eos % (Auto) (0-6) % Baso % (Auto) (0-1) % Neut # (Auto) (1.80-8.00) x10^3/uL Lymph # (Auto) (0.60-5.00) 10^3/uL Harmon # (Auto) (0.00-1.50) 10^3/uL Eos # (Auto) (0.00-1.50) 10^3/uL Baso # (Auto) (0.00-0.50) 10^3/uL Immature Gran # (Auto) (0.00-0.49) 10^3/uL Sodium (136-145) mEq/L Potassium (3.5-5.0) mEq/L Chloride (98-106) mEq/L Carbon Dioxide (21-32) mmol/L BUN (7-18) mg/dL Creatinine (0.6-1.0) mg/dL Est Cr Clr Drug Dosing mL/min Estimated GFR (MDRD) (>=60) mL/min Glucose (75-99) mg/dL POC Glucose 519 H* 469 H* 397 H (75-105) mg/dL Calcium (8.4-10.1) mg/dL Total Bilirubin (0.0-1.0) mg/dL AST (15-37) U/L ALT (12-78) U/L Alkaline Phosphatase (46-116) U/L C-Reactive Protein (0.2-0.8) mg/dL NT-Pro-B Natriuret Pep (0-1000) pg/mL Total Protein (6.4-8.2) g/dL Albumin (3.4-5.0) g/dL 06/10/21 06/10/21 06/10/21 Range/Units 07:10 07:10 07:59 WBC 19.7 H (4.0-11.0) 10^3/uL RBC 5.62 H (4.00-5.50) x10^6/uL Hgb 17.3 H (12.0-16.0) g/dL Hct 50.2 H (37.0-47.0) % MCV 89.3 (83.0-97.0) fL MCH 30.8 (27.0-32.0) pg MCHC 34.5 (32.0-36.0) g/dL RDW Coeff of Licha 13.9 (11.0-15.0) % Plt Count 179 (150-400) 10^3/uL Immature Gran % (Auto) 0.6 (0.0-4.9) % Neut % (Auto) 80.1 H (41-71) % Lymph % (Auto) 12.8 L (24-44) % Harmon % (Auto) 6.0 (0-10) % Eos % (Auto) 0.4 (0-6) % Baso % (Auto) 0.1 (0-1) % Neut # (Auto) 15.79 H (1.80-8.00) x10^3/uL Lymph # (Auto) 2.51 (0.60-5.00) 10^3/uL Harmon # (Auto) 1.18 (0.00-1.50) 10^3/uL Eos # (Auto) 0.08 (0.00-1.50) 10^3/uL Baso # (Auto) 0.01 (0.00-0.50) 10^3/uL Immature Gran # (Auto) 0.11 (0.00-0.49) 10^3/uL Sodium 136 (136-145) mEq/L Potassium 4.3 (3.5-5.0) mEq/L Chloride 100 (98-106) mEq/L Carbon Dioxide 32 (21-32) mmol/L BUN 86 H* (7-18) mg/dL Creatinine 1.9 H (0.6-1.0) mg/dL Est Cr Clr Drug Dosing 22.11 mL/min Estimated GFR (MDRD) 25 L (>=60) mL/min Glucose 176 H (75-99) mg/dL POC Glucose 177 H (75-105) mg/dL Calcium 8.9 (8.4-10.1) mg/dL Total Bilirubin 1.4 H (0.0-1.0) mg/dL AST 78 H (15-37) U/L ALT 176 H (12-78) U/L Alkaline Phosphatase 128 H (46-116) U/L C-Reactive Protein < 0.2 L (0.2-0.8) mg/dL NT-Pro-B Natriuret Pep 488 (0-1000) pg/mL Total Protein 7.1 (6.4-8.2) g/dL Albumin 3.5 (3.4-5.0) g/dL Result Diagrams: 06/10/21 07:10 06/10/21 07:10 Sepsis Event Note - Evaluation Sepsis Screening Result: No Definite Risk - Focused Exam Vital Signs: Vital Signs Temp Pulse Pulse Resp BP BP Pulse Ox 06/10/21 08:09 71 157/86 H 06/10/21 08:00 96.7 F L 67 16 157/86 H 95 06/10/21 04:00 97.2 F 65 13 106/61 95 06/10/21 00:00 96.8 F L 73 14 138/72 96 - Problem List & Annotations (1) Hyperglycemia SNOMED Code(s): 60605486 Code(s): R73.9 - HYPERGLYCEMIA, UNSPECIFIED Status: Acute Priority: High Current Visit: Yes (2) Renal failure (ARF), acute on chronic SNOMED Code(s): 464969487 Code(s): N17.9 - ACUTE KIDNEY FAILURE, UNSPECIFIED; N18.9 - CHRONIC KIDNEY DISEASE, UNSPECIFIED Status: Chronic Priority: High Current Visit: Yes Qualifiers: Chronic kidney disease stage: stage 4 (severe) (3) A-fib SNOMED Code(s): 56496807 Code(s): I48.91 - UNSPECIFIED ATRIAL FIBRILLATION Status: Chronic Viki ority: High Current Visit: Yes (4) Hyponatremia SNOMED Code(s): 23512997 Code(s): E87.1 - HYPO-OSMOLALITY AND HYPONATREMIA Status: Acute Priority: High Current Visit: Yes - Problem List Review Problem List Initiated/Reviewed/Updated: Yes - My Orders Last 24 Hours: My Active Orders 06/09/21 10:45 allopurinoL [Zyloprim] 100 mg PO DAILY 06/10/21 10:26 Patient Status [ADT] Routine 06/10/21 10:27 Dextrose 50% in Water 50 ml IVPUSH ASDIRECTED PRN Glucagon,Human Recombinant [GlucaGen] 1 mg IM ASDIRECTED PRN 06/10/21 10:30 Sodium Chloride 0.9% [Normal Saline] 1,000 ml IV ASDIRECTED 06/10/21 10:35 CBC WITH AUTO DIFF [HEME] Stat COMPREHENSIVE METABOLIC PN,CMP [CHEM] Stat CRP [C-REACTIVE PROTEIN] [CHEM] Routine 06/10/21 20:00 Insulin Glarg,Human.Rec.Analog [LantUS] 26 unit SUBCUT BEDTIME 06/11/21 08:00 Insulin Glarg,Human.Rec.Analog [LantUS] 30 unit SUBCUT DAILY - Assessment Assessment:: Hyperglycemia Hyponatremia Acute on Chronic renal failure Weakness - Plan Plan:: Patients labs repeated today. WBC increased marginally to 21.8, hemoglobin still high. BUN and creatinine have improved, creatinine now 1.8, BUN 95. CRP remains negative. Lactic acid was normal. Has been afebrile. Blood sugars were improved, up over 500 again at lunch time. Sodium has improved to 134. Due to polypharmacy and multiple lab abnormalities and concerns with WBC as unsure if just related to steroid injections, did contact hospitalist, Dr. Valerio. Recommended to stop the IV fluids as sodium is corrected and kidney function is improving to prevent further issues with heart failure. Keep diuretics at present dose, hold Spironolactone. Follow WBC and if not correcting, despite other normal results, may need to search for a source of infection, especially if develops any fevers. Continue with sliding scale of i nsulin. Repeat labs in am or sooner if becomes febrile. Did question possible CT scans if creatinine improves and WBC does not improve. 06-10-2021 Labs note slight decline in WBC today to 19.8. No obvious signs yet of infection, CRP is negative. Did stop fluids yesterday due to concerns with creating overload, however, creatinine did increase a little today and ProBNP is normal. Will resume fluids today at 75 ml/hr. Liver enzymes remain elevated so will continue to hold zocor at this time. Edema is stable, somewhat decreased since admit. Blood sugars continue to run high. Had increased her Lantus yesterday, will add more in am today as has still required additional 15 units of Humalog at meals. Will transfer to acute status to follow WBC, kidney function and adjust insulin. Likely return home with meal time insulin per sliding scale with hopes that eventually gets sugars in better control. Repeat labs in am.
[2021-06-10] MEDS ORDERED: Nitroglycerin 0.4 MG Tab.SL SL PRN (17:02)
[2021-06-10] MEDS: Furosemide 40 MG Tab PO SCH (17:02)
[2021-06-10] MEDS ORDERED: Furosemide 40 MG Tab ONE (17:25)
[2021-06-10] MEDS: Aspirin 81 MG Tab.EC PO SCH (19:30)
[2021-06-10] MEDS: Apixaban 5 MG Tab PO SCH (19:30)
[2021-06-10] MEDS ORDERED: Simvastatin 20 MG Tab PO SCH (20:00)
[2021-06-11] MEDS: Levothyroxine 100 MCG Tab PO SCH (07:25)
[2021-06-11] MEDS: Potassium Chloride 10 MEQ Tab.ER PO SCH (07:25)
[2021-06-11] MEDS: Metoprolol Succinate 25 MG Tab.ER PO SCH (07:25)
[2021-06-11] MEDS: Apixaban 5 MG Tab PO SCH ×2 (07:25→20:02)
[2021-06-11] MEDS: Allopurinol 100 MG Tab PO SCH (07:27)
[2021-06-11] MEDS: Isosorbide Mononitrate 60 MG Tab.ER PO SCH (07:27)
[2021-06-11] MEDS: Furosemide 40 MG Tab PO SCH ×2 (07:27→15:16)
[2021-06-11] MEDS: Insulin Lispro 100 Units/ML 3 ML Vial SUBCUT SCH ×4 (07:48→21:23)
[2021-06-11] MEDS: Insulin Glarg,Human.Rec.Analog 100 Unit/ML SUBCUT SCH ×2 (07:49→21:22)
[2021-06-11] MEDS ORDERED: Folic Acid 1 MG Tab PO SCH (08:00)
[2021-06-11 08:09] LABS: CHLORIDE,CL 103 mEq/L (98-106); SODIUM,NA 141 mEq/L (136-145)
[2021-06-11] MEDS: EZETIMIBE 10 MG PO SCH (09:13)
--- NOTE | 2021-06-11 12:06 | PN ---
DATE: 06/11/2021 S: Mrs. Crowe continues to do fairly well. She has not had any significant vital sign irregularities, remains afebrile. Blood pressures are fine. Sats are in the upper 90s on room air. She continues by reviewing her labs on the weekend to have an elevated white count, unclear etiology. She remains afebrile with a CRP which is negative. Creatinine is down to 1.7 today and she remains on a lower dose of her diuretic. O: GENERAL: She is pleasant and cooperative. HEENT: Benign. NECK: Neck veins are nondistended. LUNGS: Lung sounds appear clear throughout. CARDIAC: Tones are irregular, but controlled. ABDOMEN: Soft, obese, and nontender. EXTREMITIES: Lower extremities with 1+ edema, apparently improved or stable at worst. ASSESSMENT: 1. TYPE 2 DIABETES, REQUIRING INSULIN, UNCONTROLLED. 2. [id number] RENAL FAILURE, IMPROVED. 3. CHRONIC ATRIAL FIBRILLATION. 4. HYPONATREMIA, IMPROVED. 5. LEUKOCYTOSIS. P: The patient clinically looks well. She should be stable for discharge soon. We are going to try to instruct her on sliding scale insulin and better control of her sugar. She has been getting a lot of steroid shots in the last 6 to 8 months which is certainly contributing. She has a normal CRP and has been afebrile, but her white count remains elevated at over 20,000 with a differential showing mainly neutrophils. She will need a peripheral smear and likely a Hem/Onc consult in the near future. ROB/AMAN /[id number]
[2021-06-11] MEDS ORDERED: Simvastatin 20 MG Tab PO SCH (20:00)
[2021-06-11] MEDS: Aspirin 81 MG Tab.EC PO SCH (20:01)
[2021-06-12] MEDS: Insulin Glarg,Human.Rec.Analog 100 Unit/ML SUBCUT SCH (07:52)
[2021-06-12] MEDS: Insulin Lispro 100 Units/ML 3 ML Vial SUBCUT SCH (07:55)
[2021-06-12] MEDS: Furosemide 40 MG Tab PO SCH (07:57)
[2021-06-12] MEDS: Apixaban 5 MG Tab PO SCH (07:57)
[2021-06-12] MEDS: Metoprolol Succinate 25 MG Tab.ER PO SCH (07:57)
[2021-06-12 07:58] VITALS: BP 156/84; PULSE 60
[2021-06-12] MEDS: Allopurinol 100 MG Tab PO SCH (07:58)
[2021-06-12] MEDS: Potassium Chloride 10 MEQ Tab.ER PO SCH (07:58)
[2021-06-12] MEDS: Levothyroxine 100 MCG Tab PO SCH (07:58)
[2021-06-12] MEDS: Isosorbide Mononitrate 60 MG Tab.ER PO SCH (07:58)
[2021-06-12] MEDS: EZETIMIBE 10 MG PO SCH (08:00)
[2021-06-12] MEDS ORDERED: Folic Acid 1 MG Tab PO SCH (09:30)
--- NOTE | 2021-06-12 13:00 | DISCH ---
ADMISSION DIAGNOSES: 1. Uncontrolled type 2 diabetes, requiring insulin. 2. Hyponatremia. 3. Acute exacerbation of chronic renal failure. DISCHARGE DIAGNOSIS: 1. UNCONTROLLED TYPE 2 DIABETES, REQUIRING INSULIN. 2. [id number] RENAL FAILURE, IMPROVED. 3. CHRONIC ATRIAL FIBRILLATION. 4. HYPONATREMIA, RESOLVED. 5. LEUKOCYTOSIS, QUESTIONABLE ETIOLOGY. HISTORY: Ms. Crowe is a very pleasant 81-year-old female who carries multiple chronic problems. She had recently increased her diuretics for some peripheral edema and presented to our facility complaining of weakness. She was having blood sugars in the 400s and 500s at home and was told to seek help at our emergency room. She was found to have acute exacerbation of her chronic renal failure with a creatinine up at 2.3, normally she runs around 1.5. Her blood sugar was 511 and her sodium was 127. She had recently increased her diuretics for her peripheral edema, likely giving her the prerenal azotemia with a BUN of 111 and a creatinine of 2.3. Nevertheless, she was admitted for some IV fluids and titration of blood sugars. HOSPITAL COURSE: The patient did well while in the hospital. She was given normal saline for a couple of days and her creatinine steadily improved. We held her Aldactone and decreased her Lasix and her creatinine is down to 1.7. Her BUN is down from 111 to 75. Her blood sugars remain elevated. She takes a b.i.d. dose of Lantus and I strongly urged her to do q.i.d. Accu-Chek monitoring and she should go on a Humalog dose with her Lantus with meals. She could use a sliding scale as well. She elects to have Dr. Morris, her primary physician at [facility] help her with this. The patient's vital signs have been stable since admission. She does have an elevated white blood cell count of 20.5 on admit and this is with an elevated neutrophil count. I did order a peripheral smear and that is still pending. She will need followup likely with Hem/Onc pending the result of that. I do not think this is related to prior cortisone injections. The patient is given instructions in this and I will make sure Dr. Morris gets a copy of her peripheral smear, so he can facilitate any further workup. At this time, the patient clinically looks well. We are going to keep her on a lower dose of her diuretic. She should do q.i.d. Accu-Cheks. Monitor her sugars closely and have close followup with Dr. Morris for insulin titration. Her creatinine I believe is close to normal again. She still has an elevated BUN and we will expect her to have follow up with Dr. Morris to continue to monitor that. It is worthy to note on admit her proBNP was normal at 488. The rest of her lab work other than her elevated blood sugars and creatinine were fine as well. Copy of this dictation will be forwarded to Dr. Morris for his further care of this very pleasant patient. COMPLICATIONS: During her stay were none. CONSULTATIONS: None. DISPOSITION: Discharged home with instruction for followup with Dr. Morris in [address] [facility] in [place], [place]. ROB/AMAN /[id number]
== END 2021-06-12 12:05 | disposition home or self-care (01) | DRG 638 ==
LOC: CC.ED 16:33 → CC.MS 17:36 → CC.ED 17:50 → OBSVTOIN 06-10 10:31 → CC.MS 06-12 12:05
PROVIDERS: ADMIT Physician Assistant Medical; ATTEND Family Medicine
DX: E11.65 Type 2 diabetes mellitus with hyperglycemia (principal); N17.9 Acute kidney failure, unspecified; E87.1 Hypo-osmolality and hyponatremia; H54.7 Unspecified visual loss; I48.20 Chronic atrial fibrillation, unspecified; I13.0 Hypertensive heart and chronic kidney disease with heart failure and stage 1 through stage 4 chronic kidney disease, or unspecified chronic kidney disease; N18.9 Chronic kidney disease, unspecified; N18.4 Chronic kidney disease, stage 4 (severe); D72.829 Elevated white blood cell count, unspecified; E78.00 Pure hypercholesterolemia, unspecified; I50.9 Heart failure, unspecified; G47.30 Sleep apnea, unspecified; K21.9 Gastro-esophageal reflux disease without esophagitis; M19.90 Unspecified osteoarthritis, unspecified site; M10.9 Gout, unspecified; G89.29 Other chronic pain; M54.9 Dorsalgia, unspecified; F32.9 Major depressive disorder, single episode, unspecified; E11.22 Type 2 diabetes mellitus with diabetic chronic kidney disease; E03.9 Hypothyroidism, unspecified; Z79.01 Long term (current) use of anticoagulants; Z98.49 Cataract extraction status, unspecified eye; Z88.2 Allergy status to sulfonamides; Z79.82 Long term (current) use of aspirin; Z79.899 Other long term (current) drug therapy; Z79.4 Long term (current) use of insulin; Z95.1 Presence of aortocoronary bypass graft; Z95.5 Presence of coronary angioplasty implant and graft; Z90.710 Acquired absence of both cervix and uterus
CPT/HCPCS: 36415 ×3; 80048; 80053 ×2; 81003; 82947 ×8; 83605; 83880; 85025 ×3; 86140 ×3; 99285; A9270 ×24; J1815 ×4; J7030 ×2; 85046; 99220; 99225; G0378

== ENCOUNTER 2024-09-20 21:39 | Inpatient (IN) | payer MEDICARE, BC ==
[2024-09-20 22:33] LABS: HEMOGLOBIN 15.4 g/dL (12.0-16.0); MEAN CORPUSCULAR HEMOGLOBIN 31.4 pg (27.0-32.0); MEAN CORPUSCULAR HGB CONC 33.5 g/dL (32.0-36.0); MEAN CORPUSCULAR VOLUME 93.7 fL (83.0-97.0); PLATELET COUNT,PLT 124 10^3/uL (150-400); RED BLOOD CELL COUNT 4.91 x10^6/uL (4.00-5.50)
[2024-09-20 22:56] LABS: WHITE BLOOD CELL COUNT,WBC 25.4 10^3/uL (4.0-11.0)
[2024-09-20 22:59] LABS: BAND PERCENT MAN 4 % (0-5); LYMPHOCYTES PERCENT MAN 10 % (21-55); MONOCYTES PERCENT MAN 4 % (2-12); SEG NEUTROPHILS PERCENT MAN 82 % (35-85)
[2024-09-20 23:04] LABS: ALANINE AMINOTRANSFERASE,ALT 21 U/L (12-78); ALBUMIN 3.8 g/dL (3.4-5.0); ALKALINE PHOSPHATASE 127 U/L (46-116); ASPARTATE AMNIOTRANSFERASE,AST 28 U/L (15-37); BILIRUBIN TOTAL 2.1 mg/dL (0.0-1.0); BLOOD UREA NITROGEN,BUN 26 mg/dL (7-18); C-REACTIVE PROTEIN 6.24 mg/dL (<=0.50); CALCIUM 9.5 mg/dL (8.4-10.1); CARBON DIOXIDE,CO2 28 mmol/L (21-32); CHLORIDE,CL 100 mEq/L (98-106); CREATININE 1.2 mg/dL (0.6-1.0); ESTIMATED GFR 45 mL/min (>=60); GLUCOSE RANDOM 181 mg/dL (75-99); MAGNESIUM 1.6 mg/dL (1.8-2.4); POTASSIUM,K 4.1 mEq/L (3.5-5.0); PRO B-TYPE NATRIUR PEPT,BNPPRO 2601 pg/mL (0-1000); PROTEIN TOTAL,TP 7.5 g/dL (6.4-8.2); SODIUM,NA 139 mEq/L (136-145)
[2024-09-20] MEDS: Iopamidol 755 Mg/ML 100 ML Bottle IVPUSH ONE (23:13)
[2024-09-20 23:32] LABS: APPEARANCE,URINE CLEAR (CLEAR); BILIRUBIN,URINE NEGATIVE (NEGATIVE); COLOR,URINE YELLOW (YELLOW); GLUCOSE,URINE 100 mg/dL (NEGATIVE); KETONES,URINE TRACE mg/dL (NEGATIVE); LEUKOCYTE ESTERASE,URINE TRACE (NEGATIVE); NITRITE,URINE NEGATIVE (NEGATIVE); OCCULT BLOOD,URINE TRACE-INTACT (NEGATIVE); PROTEIN,URINE 100 mg/dL (NEGATIVE); UROBILINOGEN,URINE 0.2 EU/dL (0.2-1.0)
[2024-09-20 23:37] LABS: AMORPHOUS SEDIMENT,URINE MODERATE /HPF (NOT SEEN); RBC,URINE 0-5 /HPF (0-5); SQUAMOUS EPITHELIAL CELLS,UR MANY /HPF (NOT SEEN); WBC,URINE 0-5 /HPF (0-5)
[2024-09-21] MEDS ORDERED: Ondansetron 4 MG/2 ML SDV IV PRN (00:59)
[2024-09-21] MEDS ORDERED: Docusate Sodium 100 MG Cap PO PRN (00:59)
[2024-09-21] MEDS ORDERED: Acetaminophen 325 MG Tab PO PRN (00:59)
[2024-09-21] MEDS ORDERED: Spironolactone 25 MG Tab PO PRN ×2 (00:59→10:59)
[2024-09-21] MEDS ORDERED: Morphine 2 MG/ML SYRINGE IVPUSH PRN (00:59)
[2024-09-21] MEDS ORDERED: [UNRECOGNIZED DRUG - REMARK] TOP PRN (00:59)
[2024-09-21] MEDS ORDERED: Ondansetron 4 MG Tab.DIS PO PRN (00:59)
[2024-09-21] MEDS ORDERED: Polyethylene Glycol 3350 Powder 17 GM Packet PO PRN (00:59)
[2024-09-21] MEDS: Magnesium Oxide 400 MG Tab PO ONE (01:08)
[2024-09-21] MEDS: Furosemide 20 MG/2 ML VIAL IVPUSH ONE (01:08)
[2024-09-21] MEDS: metroNIDAZOLE/Normal Saline 500 MG in Premix Bag 1 BAG IV SCH (01:08)
[2024-09-21] MEDS: Sodium Chloride 0.9% 500 ML IV SCH (01:08)
[2024-09-21] MEDS: cefTRIAXone 1 GM Vial IVPUSH SCH ×2 (01:08→19:23)
[2024-09-21] MEDS: Levothyroxine 100 MCG Tab PO SCH (07:50)
[2024-09-21] MEDS: Mupirocin Oint 22 GM Tube TOP SCH (07:56)
[2024-09-21] MEDS: Folic Acid 1 MG Tab PO SCH (07:57)
[2024-09-21] MEDS: Allopurinol 100 MG Tab PO SCH (07:58)
[2024-09-21] MEDS: Furosemide 40 MG Tab PO SCH (07:58)
[2024-09-21] MEDS: Apixaban 5 MG Tab PO SCH (07:58)
[2024-09-21] MEDS: Magnesium Oxide 400 MG Tab PO SCH (07:58)
[2024-09-21] MEDS ORDERED: Non-Formulary Medication 1 Each (Magnesium [Magnesium] 250 MG Tablet) PO SCH (08:00)
[2024-09-21] MEDS ORDERED: Non-Formulary Medication 1 Each (Biotin [Biotin] 5 MG Capsule) PO SCH (08:00)
[2024-09-21] MEDS ORDERED: Non-Formulary Medication 1 Each (Folic Acid [Folic Acid] 0.4 MG Tablet) PO SCH (08:00)
[2024-09-21] MEDS: Metoprolol Succinate 25 MG Tab.ER PO SCH (09:22)
[2024-09-21] MEDS: Isosorbide Mononitrate 60 MG Tab.ER PO SCH (09:22)
[2024-09-21 09:33] LABS: BASOPHILS ABSOLUTE AUTO 0.01 10^3/uL (0.00-0.50); BASOPHILS PERCENT AUTO 0.1 % (0-1); EOSINOPHILS ABSOLUTE AUTO 0.03 10^3/uL (0.00-1.50); EOSINOPHILS PERCENT AUTO 0.2 % (0-6); HEMATOCRIT 42.5 % (37.0-47.0); HEMOGLOBIN 14.1 g/dL (12.0-16.0); IMMATURE GRAN ABSOLUTE AUTO 0.04 10^3/uL (0.00-0.49); IMMATURE GRAN PERCENT AUTO 0.2 % (0.0-4.9); LYMPHOCYTES ABSOLUTE AUTO 1.83 10^3/uL (0.60-5.00); LYMPHOCYTES PERCENT AUTO 10.1 % (24-44); MEAN CORPUSCULAR HEMOGLOBIN 30.7 pg (27.0-32.0); MEAN CORPUSCULAR HGB CONC 33.2 g/dL (32.0-36.0); MEAN CORPUSCULAR VOLUME 92.6 fL (83.0-97.0); MONOCYTES ABSOLUTE AUTO 0.93 10^3/uL (0.00-1.50); MONOCYTES PERCENT AUTO 5.1 % (0-10); NEUTROPHILS ABSOLUTE AUTO 15.32 x10^3/uL (1.80-8.00); NEUTROPHILS PERCENT AUTO 84.3 % (41-71); PLATELET COUNT,PLT 115 10^3/uL (150-400); RED BLOOD CELL COUNT 4.59 x10^6/uL (4.00-5.50); WHITE BLOOD CELL COUNT,WBC 18.2 10^3/uL (4.0-11.0)
[2024-09-21 09:42] LABS: CALCIUM 8.8 mg/dL (8.4-10.1); CREATININE 1.2 mg/dL (0.6-1.0); EST CRCL DRUG DOSING (CG) 31.96 mL/min; MAGNESIUM 1.7 mg/dL (1.8-2.4); POTASSIUM,K 3.8 mEq/L (3.5-5.0)
[2024-09-21] MEDS ORDERED: Furosemide 40 MG Tab PO PRN (13:00)
[2024-09-21] MEDS: Melatonin 3 MG Tab PO SCH (19:37)
[2024-09-21] MEDS: Simvastatin 20 MG Tab PO SCH (19:38)
[2024-09-21] MEDS: Insulin Glarg,Human.Rec.Analog 100 Unit/ML 10 ML Vial SUBCUT SCH (20:08)
[2024-09-22 07:38] LABS: BASOPHILS ABSOLUTE AUTO 0.02 10^3/uL (0.00-0.50); BASOPHILS PERCENT AUTO 0.2 % (0-1); EOSINOPHILS PERCENT AUTO 0.8 % (0-6); HEMATOCRIT 38.8 % (37.0-47.0); HEMOGLOBIN 12.9 g/dL (12.0-16.0); IMMATURE GRAN ABSOLUTE AUTO 0.02 10^3/uL (0.00-0.49); IMMATURE GRAN PERCENT AUTO 0.2 % (0.0-4.9); LYMPHOCYTES ABSOLUTE AUTO 1.75 10^3/uL (0.60-5.00); LYMPHOCYTES PERCENT AUTO 14.4 % (24-44); MEAN CORPUSCULAR HEMOGLOBIN 31.1 pg (27.0-32.0); MEAN CORPUSCULAR HGB CONC 33.2 g/dL (32.0-36.0); MEAN CORPUSCULAR VOLUME 93.5 fL (83.0-97.0); MONOCYTES ABSOLUTE AUTO 0.81 10^3/uL (0.00-1.50); MONOCYTES PERCENT AUTO 6.7 % (0-10); NEUTROPHILS ABSOLUTE AUTO 9.47 x10^3/uL (1.80-8.00); NEUTROPHILS PERCENT AUTO 77.7 % (41-71); PLATELET COUNT,PLT 119 10^3/uL (150-400); RED BLOOD CELL COUNT 4.15 x10^6/uL (4.00-5.50); WHITE BLOOD CELL COUNT,WBC 12.2 10^3/uL (4.0-11.0)
[2024-09-22] MEDS: Ezetimibe 10 MG Tab PO SCH (07:41)
[2024-09-22 07:44] LABS: CALCIUM 8.6 mg/dL (8.4-10.1); CREATININE 1.1 mg/dL (0.6-1.0); EST CRCL DRUG DOSING (CG) 34.87 mL/min; MAGNESIUM 1.7 mg/dL (1.8-2.4); POTASSIUM,K 3.8 mEq/L (3.5-5.0)
[2024-09-22] MEDS: Insulin Glarg,Human.Rec.Analog 100 Unit/ML 10 ML Vial SUBCUT SCH (08:04)
[2024-09-22 13:56] VITALS: BP 139/38; PULSE 75
== END 2024-09-22 14:02 | disposition home or self-care (01) | DRG 392 ==
LOC: CC.ED 21:39 → UNDOADMIN 09-21 00:20 → CC.MS 09-21 00:20
PROVIDERS: ADMIT Nurse Practitioner; ATTEND Nurse Practitioner
DX: K57.32 Diverticulitis of large intestine without perforation or abscess without bleeding (principal); K57.92 Diverticulitis of intestine, part unspecified, without perforation or abscess without bleeding; I48.91 Unspecified atrial fibrillation; I50.9 Heart failure, unspecified; E78.00 Pure hypercholesterolemia, unspecified; I11.0 Hypertensive heart disease with heart failure; G47.30 Sleep apnea, unspecified; Z86.16 Personal history of COVID-19; K21.9 Gastro-esophageal reflux disease without esophagitis; F32.A Depression, unspecified; E03.9 Hypothyroidism, unspecified; E11.9 Type 2 diabetes mellitus without complications; Z79.890 Hormone replacement therapy; M10.9 Gout, unspecified; Z88.8 Allergy status to other drugs, medicaments and biological substances; M54.9 Dorsalgia, unspecified; G89.29 Other chronic pain; M19.90 Unspecified osteoarthritis, unspecified site; D72.829 Elevated white blood cell count, unspecified; H54.7 Unspecified visual loss; Z88.2 Allergy status to sulfonamides; Z88.6 Allergy status to analgesic agent; Z79.899 Other long term (current) drug therapy; Z79.4 Long term (current) use of insulin; Z79.01 Long term (current) use of anticoagulants; Z79.52 Long term (current) use of systemic steroids; Z95.1 Presence of aortocoronary bypass graft; Z95.5 Presence of coronary angioplasty implant and graft; Z98.890 Other specified postprocedural states; Z98.49 Cataract extraction status, unspecified eye; Z90.49 Acquired absence of other specified parts of digestive tract; Z90.710 Acquired absence of both cervix and uterus
CPT/HCPCS: 36415; 70450; 71045; 74177; 80048; 80053; 81001; 82947; 83605; 83735; 83880; 84484; 85025; 85730; 86140; 87040; 87428-QW; 93005; 93010; 97161-GP; 99285; A9270-GY; J0696; J1836; J1940; J7040; Q9967

== ENCOUNTER 2025-01-23 13:58 | Emergency (ER) | payer MEDICARE, BC ==
[2025-01-23 14:17] VITALS: BP 144/49; PULSE 74
[2025-01-23] MEDS: Lidocaine 1% 5 ML VIAL INJECT ONE (14:18)
== END 2025-01-23 15:27 | disposition home or self-care (01) ==
LOC: CC.ED 13:58
DX: S81.812A Laceration without foreign body, left lower leg, initial encounter (principal); I11.0 Hypertensive heart disease with heart failure; I50.9 Heart failure, unspecified; I48.91 Unspecified atrial fibrillation; E11.9 Type 2 diabetes mellitus without complications; E03.9 Hypothyroidism, unspecified; E78.00 Pure hypercholesterolemia, unspecified; M19.90 Unspecified osteoarthritis, unspecified site; Z88.8 Allergy status to other drugs, medicaments and biological substances; Z88.2 Allergy status to sulfonamides; Z79.899 Other long term (current) drug therapy; Z79.4 Long term (current) use of insulin; Z79.01 Long term (current) use of anticoagulants; Z79.890 Hormone replacement therapy; Z86.16 Personal history of COVID-19; Z90.710 Acquired absence of both cervix and uterus; Z90.49 Acquired absence of other specified parts of digestive tract; W22.8XXA Striking against or struck by other objects, initial encounter; Y93.01 Activity, walking, marching and hiking
CPT/HCPCS: 12001; 99282; J2003